=== PATIENT | male | born 1930 | race Caucasian/White ===

== ENCOUNTER 2017-09-28 23:35 | Observation (INO) | payer MEDICARE, BC ==
[2017-09-28] MEDS ORDERED: NS 0.9% 1000 ML* 1,000 ML IV ONE (23:57)
[2017-09-29] MEDS ORDERED: Acetaminophen TAB* 325 MG PO ONE (00:12)
[2017-09-29 00:33] LABS: Hematocrit 46 % (42-52); Hemoglobin 15.7 g/dl (14.0-18.0); Mean Corpuscular HGB Conc 34 g/dl (31-36); Mean Corpuscular Hemoglobin 34 pg (27-31); Mean Corpuscular Volume 98 fL (80-94); Mean Platelet Volume 9 um3 (7.4-10.4); Red Blood Count 4.66 10^6/ul (4.0-5.4); Red Cell Distribution Width 14 % (10.5-15)
[2017-09-29 00:51] LABS: BUN/Creatinine Ratio 19.8 (8-20); EGFR Non-African American 74.4 (>60); Potassium 3.5 mmol/L (3.5-5.0)
[2017-09-29 00:52] LABS: Albumin 3.8 g/dL (3.2-5.2); Calcium 8.9 mg/dL (8.6-10.3); EGFR African American 95.7 (>60); Globulin 2.7 g/dL (2-4); Total Bilirubin 0.6 mg/dL (0.2-1.0); Total Protein 6.5 g/dL (6.4-8.9); Troponin I 0.01 ng/mL (<0.04)
[2017-09-29 02:18] LABS: Urine Bilirubin Negative (Negative); Urine Glucose Negative (Negative); Urine Nitrite Negative (Negative)
--- NOTE | 2017-09-29 03:38 | ED ---
Hudson Parra Jason, scribed for Ady Calderon on 09/28/17 at 2359 . Complex/Multi-Sys Presentation - HPI Summary HPI Summary: This patient is a 86 year old M presenting to [facility] accompanied by family with a chief complaint of general weakness since 2 days ago. The patient states that he had a sore throat 4 days ago and began to have difficulty walking 2 days ago. The patient rates the pain 0/10 in severity. Symptoms aggravated by nothing. Symptoms alleviated by nothing. Patient reports coughing. Patient denies CP, SOB, abdominal pain. - History Of Current Complaint Time Seen by Provider: 09/28/17 23:50 Hx Obtained From: Patient Onset/Duration: Gradual Onset, Lasting Days - since 2 days ago, Still Present Timing: Constant Aggravating Factor(s): nothing Alleviating Factor(s): nothing Associated Signs And Symptoms: Positive: Other - coughing, sore throat, weakness. Patient denies CP, SOB, and abdominal pain. - Allergies/Home Medications Allergies/Adverse Reactions: Allergies Allergy/AdvReac Type Severity Reaction Status Date / Time Penicillins Allergy Intermediate Hives Verified 06/01/13 12:01 Home Medications: Home Medications Cyanocobalamin TAB* [Vitamin B12 TAB*] 2,500 mcg PO 1200 09/29/17 [History Confirmed 09/29/17] Gabapentin CAP(*) [Neurontin 100 mg CAP(*)] 100 mg PO QID 09/29/17 [History Confirmed 09/29/17] Metoprolol Succinate [Metoprolol Succinate ER] 25 mg PO 1700 09/29/17 [History Confirmed 09/29/17] Nitroglycerin TAB 0.4 MG* 0.4 mg SL . NEEDED PRN 09/29/17 [History Confirmed 09/29/17] PMH/Surg Hx/FS Hx/Imm Hx Previously Healthy: No Endocrine/Hematology History: Denies: Hx Anticoagulant Therapy, Hx Blood Disorders, Hx Blood Transfusions, Hx Bone Marrow Disease, Hx Diabetes, Hx Systemic Lupus Erythematosus, Hx Sickle Cell Disease, Hx Thyroid Disease, Hx Anemia, Hx Unexplained Bleeding, Other Endocrine/Hematological Disorders Cardiovascular History: Reports: Hx Coronary Artery Disease, Hx Hypercholesterolemia Denies: Hx Aneurysm, Hx Angina, Hx Angioplasty, Hx Auto Implanted Cardiovert Defib, Hx Cardiac Arrest, Hx Cardiomegaly, Hx Congenital Heart Disease, Hx Congestive Heart Failure, Hx Deep Vein Thrombosis, Hx Embolism, Hx Hypotension, Hx Hypertension, Hx Pacemaker/ICD, Hx Peripheral Vascular Disease, Hx Rheumatic Fever, Hx Syncope, Hx Valvular Heart Disease, Other Cardiovascular Problems/ Disorders Respiratory History: Denies: Hx Asthma, Hx Chronic Bronchitis, Hx Chronic Obstructive Pulmonary Disease (COPD), Hx Cystic Fibrosis, Hx Lung Cancer, Hx Pleural Effusion, Hx Pneumonia, Hx Pulmonary Edema, Hx Pulmonary Embolism, Hx Seasonal Allergies, Hx Sleep Apnea, Other Respiratory Problems/Disorders GI History: Reports: Hx Gastroesophageal Reflux Disease, Hx Hiatal Hernia, Hx Ulcer Denies: Hx Cirrhosis, Hx Crohn's Disease, Hx Diverticulosis, Hx Gall Bladder Disease, Hx Gastrointestinal Bleed, Hx Irritable Bowel, Hx Jaundice, Hx Obstructive Bowel, Hx Ileostomy, Hx Pyloric Stenosis, Other GI Disorders History: Denies: Hx Acute Renal Failure, Hx Benign Prostatic Hyperplasia, Hx Chronic Renal Failure, Hx Dialysis, Hx Kidney Infection, Hx Kidney Stones, Other Problems/Disorders Musculoskeletal History: Reports: Hx Arthritis Denies: Hx Back Problems, Hx Bursitis, Hx Congenital Bone Abnormalities, Hx Fibromyalgia, Hx Gout, Hx Orthopedic Injury, Hx Osteoporosis, Hx Scoliosis, Hx Tendonitis, Other Musculoskeletal History Sensory History: Reports: Hx Contacts or Glasses Denies: Hx Cataracts, Hx Eye Injury, Hx Eye Prosthesis, Hx Glaucoma, Hx Legally Blind, Hx Macular Degeneration, Hx Vision Problem, Hx Deafness, Hx Hearing Aid, Hx Hearing Problem, Other Sensory Impairments Opthamlomology History: Reports: Hx Contacts or Glasses Denies: Hx Cataracts, Hx Eye Injury, Hx Eye Prosthesis, Hx Glaucoma, Hx Legally Blind, Hx Macular Degeneration, Hx Vision Problem, Other Sensory Impairments Neurological History: Denies: Hx Dementia, Hx Developmental Delay, Hx Headaches, Hx Migraine, Hx Nerve Disease, Hx Seizures, Hx Spinal Cord Injury, Hx Transient Ischemic Attacks (TIA), Other Neuro Impairments/Disorders Psychiatric History: Reports: Hx Depression - medicated for depression Denies: Hx Anxiety, Hx Attention Deficit Hyperactivity Disorder, Hx Eating Disorder, Hx Panic Disorder, Hx Post Traumatic Stress Disorder, Hx Inpatient Treatment, Hx Community Mental Health Tx, Hx Schizophrenia, Hx Bipolar Disorder , Hx Suicide Attempt, Hx of Violent Episodes Against Others, Hx Substance Abuse , Other Psychiatric Issues/Disorders - Cancer History Cancer Type, 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 Hx Chemotherapy: No Hx Radiation Therapy: Yes - in the 1960s Hx Palliative Cancer Treatment: No - Surgical History Surgery Procedure, Year, and Place: total right knee 1995, 7 hand surgeries r/t RA, appendectomy, hernia 2012 Hx Anesthesia Reactions: No Infectious Disease History: Denies: Hx Clostridium Difficile, Hx Hepatitis, Hx Human Immunodeficiency Virus (HIV), Hx of Known/Suspected MRSA, Hx Shingles, Hx Tuberculosis, Hx Known/ Suspected VRE, Hx Known/Suspected VRSA, History Other Infectious Disease, Traveled Outside the [place] in Last 30 Days - Family History Known Family History: Negative: Renal Disease, Blood Disorder - Social History Alcohol Use: None Substance Use Type: Reports: None Smoking Status (MU): Never Smoked Tobacco Have You Smoked in the Last Year: No Review of Systems Negative: Chest Pain Negative: Shortness Of Breath Negative: Abdominal Pain Positive: Weakness All Other Systems Reviewed And Are Negative: Yes Physical Exam - Summary Physical Exam Summary: Appearance: Well appearing, no pain distress Skin: warm, dry, reflects adequate perfusion Head/face: normal Eyes: EOMI, RORY ENT: normal, Dry mucous membranes Neck: supple, non-tender Respiratory: breath sounds present, Rhonchi in the left lung base Cardiovascular: RRR, pulses symmetrical Abdomen: non-tender, soft Bowel: present Musculoskeletal: normal, strength/ROM intact Neuro: normal, sensory motor intact, A&Ox3 Triage Information Reviewed: Yes Vital Signs On Initial Exam: Initial Vitals Temp Pulse Resp BP Pulse Ox 101.5 F 87 20 153/74 93 09/28/17 23:50 09/28/17 23:50 09/28/17 23:50 09/28/17 23:50 09/28/17 23:50 Vital Signs Reviewed: Yes Diagnostics - Vital Signs Vital Signs Temp Pulse Resp BP Pulse Ox 09/29/17 03:00 74 12 119/72 92 09/29/17 02:30 67 20 120/64 91 09/29/17 02:00 70 19 115/61 91 09/29/17 01:30 79 19 111/67 92 09/29/17 01:00 84 22 93 09/29/17 00:39 87 19 92 09/29/17 00:38 111/72 09/29/17 00:01 20 09/28/17 23:50 101.5 F 87 20 153/74 93 - Laboratory Lab Results: Lab Results 09/28/17 09/28/1709/28/17 Range/Units 00:20 00:20 00:20 WBC 9.0 (3.5-10.8) 10^3/ul RBC 4.66 (4.0-5.4) 10^6/ul Hgb 15.7 (14.0-18.0) g/dl Hct 46 (42-52) % MCV 98 H (80-94) fL MCH 34 H (27-31) pg MCHC 34 (31-36) g/dl RDW 14 (10.5-15) % Plt Count 125 L (150-450) 10^3/ul MPV 9 (7.4-10.4) um3 Neut % (Auto) 71.4 (38-83) % Lymph % (Auto) 15.1 L (25-47) % [place] % (Auto) 13.2 H (1-9) % Eos % (Auto) 0 (0-6) % Baso % (Auto) 0.3 (0-2) % Absolute Neuts (auto) 6.4 (1.5-7.7) 10^3/ul Absolute Lymphs (auto) 1.4 (1.0-4.8) 10^3/ul Absolute Monos (auto) 1.2 H (0-0.8) 10^3/ul Absolute Eos (auto) 0 (0-0.6) 10^3/ul Absolute Basos (auto) 0 (0-0.2) 10^3/ul Absolute Nucleated RBC 0 10^3/ul Nucleated RBC % 0.1 INR (Anticoag Therapy) 1.09 H (0.77-1.02) APTT 33.5 (26.0-36.3) seconds Sodium (133-145) mmol/L Potassium (3.5-5.0) mmol/L Chloride (101-111) mmol/L Carbon Dioxide (22-32) mmol/L Anion Gap (2-11) mmol/L BUN (6-24) mg/dL Creatinine (0.67-1.17) mg/dL Est GFR ( Amer) (>60) Est GFR (Non-Af Amer) (>60) BUN/Creatinine Ratio (8-20) Glucose (70-100) mg/dL Lactic Acid (0.5-2.0) mmol/L Calcium (8.6-10.3) mg/dL Total Bilirubin (0.2-1.0) mg/dL AST (13-39) U/L ALT (7-52) U/L Alkaline Phosphatase (34-104) U/L Troponin I (<0.04) ng/mL B-Natriuretic Peptide 15 ( - 100) pg/mL Total Protein (6.4-8.9) g/dL Albumin (3.2-5.2) g/dL Globulin (2-4) g/dL Albumin/Globulin Ratio (1-3) Procalcitonin (<0.6) ng/mL Urine Color Urine Appearance Urine pH (5-9) Ur Specific [place] (1.010-1.030) Urine Protein (Negative) Urine Ketones (Negative) Urine Blood (Negative) Urine Nitrate (Negative) Urine Bilirubin (Negative) Urine Urobilinogen (Negative) Ur Leukocyte Esterase (Negative) Urine Glucose (Negative) Urine Ascorbic Acid (Negative) Influenza A (Rapid) (Negative) Influenza B (Rapid) (Negative) 09/28/17 09/28/17 09/28/17 Range/Units 00:20 00:20 00:20 WBC (3.5-10.8) 10^3/ul RBC (4.0-5.4) 10^6/ul Hgb (14.0-18.0) g/dl Hct (42-52) % MCV (80-94) fL MCH (27-31) pg MCHC (31-36) g/dl RDW (10.5-15) % Plt Count (150-450) 10^3/ul MPV (7.4-10.4) um3 Neut % (Auto) (38-83) % Lymph % (Auto) (25-47) % [place] % (Auto) (1-9) % Eos % (Auto) (0-6) % Baso % (Auto) (0-2) % Absolute Neuts (auto) (1.5-7.7) 10^3/ul Absolute Lymphs (auto) (1.0-4.8) 10^3/ul Absolute Monos (auto) (0-0.8) 10^3/ul Absolute Eos (auto) (0-0.6) 10^3/ul Absolute Basos (auto) (0-0.2) 10^3/ul Absolute Nucleated RBC 10^3/ul Nucleated RBC % INR (Anticoag Therapy) (0.77-1.02) APTT (26.0-36.3) seconds Sodium 135 (133-145) mmol/L Potassium 3.5 (3.5-5.0) mmol/L Chloride 105 (101-111) mmol/L Carbon Dioxide 23 (22-32) mmol/L Anion Gap 7 (2-11) mmol/L BUN 19 (6-24) mg/dL Creatinine 0.96 (0.67-1.17) mg/dL Est GFR ( Amer) 95.7 (>60) Est GFR (Non-Af Amer) 74.4 (>60) BUN/Creatinine Ratio 19.8 (8-20) Glucose 141 H (70-100) mg/dL Lactic Acid 0.9 (0.5-2.0) mmol/L Calcium 8.9 (8.6-10.3) mg/dL Total Bilirubin 0.60 (0.2-1.0) mg/dL AST 22 (13-39) U/L ALT 16 (7-52) U/L Alkaline Phosphatase 47 (34-104) U/L Troponin I 0.01 (<0.04) ng/mL B-Natriuretic Peptide ( - 100) pg/mL Total Protein 6.5 (6.4-8.9) g/dL Albumin 3.8 (3.2-5.2) g/dL Globulin 2.7 (2-4) g/dL Albumin/Globulin Ratio 1.4 (1-3) Procalcitonin 0.1 (<0.6) ng/mL Urine Color Urine Appearance Urine pH (5-9) Ur Specific [place] (1.010-1.030) Urine Protein (Negative) Urine Ketones (Negative) Urine Blood (Negative) Urine Nitrate (Negative) Urine Bilirubin (Negative) Urine Urobilinogen (Negative) Ur Leukocyte Esterase (Negative) Urine Glucose (Negative) Urine Ascorbic Acid (Negative) Influenza A (Rapid) (Negative) Influenza B (Rapid) (Negative) 09/29/17 09/29/17 Range/Units 01:04 01:45 WBC (3.5-10.8) 10^3/ul RBC (4.0-5.4) 10^6/ul Hgb (14.0-18.0) g/dl Hct (42-52) % MCV (80-94) fL MCH (27-31) pg MCHC (31-36) g/dl RDW (10.5-15) % Plt Count (150-450) 10^3/ul MPV (7.4-10.4) um3 Neut % (Auto) (38-83) % Lymph % (Auto) (25-47) % [place] % (Auto) (1-9) % Eos % (Auto) (0-6) % Baso % (Auto) (0-2) % Absolute Neuts (auto) (1.5-7.7) 10^3/ul Absolute Lymphs (auto) (1.0-4.8) 10^3/ul Absolute Monos (auto) (0-0.8) 10^3/ul Absolute Eos (auto) (0-0.6) 10^3/ul Absolute Basos (auto) (0-0.2) 10^3/ul Absolute Nucleated RBC 10^3/ul Nucleated RBC % INR (Anticoag Therapy) (0.77-1.02) APTT (26.0-36.3) seconds Sodium (133-145) mmol/L Potassium (3.5-5.0) mmol/L Chloride (101-111) mmol/L Carbon Dioxide (22-32) mmol/L Anion Gap (2-11) mmol/L BUN (6-24) mg/dL Creatinine (0.67-1.17) mg/dL Est GFR ( Amer) (>60) Est GFR (Non-Af Amer) (>60) BUN/Creatinine Ratio (8-20) Glucose (70-100) mg/dL Lactic Acid (0.5-2.0) mmol/L Calcium (8.6-10.3) mg/dL Total Bilirubin (0.2-1.0) mg/dL AST (13-39) U/L ALT (7-52) U/L Alkaline Phosphatase (34-104) U/L Troponin I (<0.04) ng/mL B-Natriuretic Peptide ( - 100) pg/mL Total Protein (6.4-8.9) g/dL Albumin (3.2-5.2) g/dL Globulin (2-4) g/dL Albumin/Globulin Ratio (1-3) Procalcitonin (<0.6) ng/mL Urine Color Radha Urine Appearance Clear Urine pH 5.0 (5-9) Ur Specific [place] 1.023 (1.010-1.030) Urine Protein Negative (Negative) Urine Ketones Negative (Negative) Urine Blood Negative (Negative) Urine Nitrate Negative (Negative) Urine Bilirubin Negative (Negative) Urine Urobilinogen Negative (Negative) Ur Leukocyte Esterase Negative (Negative) Urine Glucose Negative (Negative) Urine Ascorbic Acid * H (Negative) Influenza A (Rapid) Negative (Negative) Influenza B (Rapid) Negative (Negative) Result Diagrams: 09/28/17 00:20 09/28/17 00:20 Lab Statement: Any lab studies that have been ordered have been reviewed, and results considered in the medical decision making process. - Radiology CXR Radiology Interpretation Completed By: ED Physician - NO FINDINGS - EKG 0012 Cardiac Rate: NL EKG Rhythm: Sinus Rhythm - 81 bpm EKG Interpretation: Right Bundle Branch Block Complex Multi-Symp Course/Dx Course Of Treatment: This patient is a 86 year old M presenting to [facility] accompanied by family with a chief complaint of general weakness since 2 days ago. CXR reveals no findings. EKG reveals Sinus rhythm at 81 bpm and RBBB. Influenza A and B test result is negative. Bloodwork/UA obtained. We discussed patient care with Dr. Martinez and they recommended admission. The patient is agreeable with this plan. Dx of Fever, dizziness, weakness, and unable to ambulate. - Diagnoses Differential Diagnoses/HQI/PQRI: Sepsis, Urinary Tract Infection, Other - flu/ pneumonia Provider Diagnoses: Dizziness, Weakness, Fever, Unable to ambulate - Physician Notifications Discussed Care Of Patient With: Essie Martinez Time Discussed With Above Provider: 02:39 Instructed by Provider To: Admit As Inpatient Discharge - Discharge Plan Condition: Stable Disposition: ADMITTED TO [facility] Referrals: Rain Pinon MD [Primary Care Provider] - The documentation as recorded by the Hudson iverson Jason accurately reflects the service I personally performed and the decisions made by Kvng fountain Emmanuel.
[2017-09-29] MEDS ORDERED: Acetaminophen TAB* 325 MG PO PRN (04:13)
[2017-09-29] MEDS ORDERED: Albuterol 2.5 MG/3 ML NEB.SOL* (0.083%) INH PRN (04:13)
[2017-09-29] MEDS ORDERED: NS 0.9% 1000 ML* 1,000 ML IV SCH (04:15)
[2017-09-29] MEDS: Azithromycin IV(*) 500 MG in NS 0.9% 250 ML* 250 ML IVPB SCH (05:15)
[2017-09-29] MEDS: Heparin VIAL(*) 5000 UNITS/ML VIAL (FIVE THOUSAND) SUBCUT SCH ×3 (05:18→21:35)
--- NOTE | 2017-09-29 07:57 | RAD ---
HISTORY: Fever COMPARISONS: August 29, 2015 VIEWS: 1: frontal portable view of the chest at 12:25 AM FINDINGS: LINES AND TUBES: None. CARDIOMEDIASTINAL SILHOUETTE: The cardiomediastinal silhouette is stable. PLEURA: The costophrenic angles are sharp. No pleural abnormalities are noted. LUNG PARENCHYMA: The lungs are clear. ABDOMEN: The upper abdomen is clear. There is no subphrenic gas. BONES AND SOFT TISSUES: No bone or soft tissue abnormalities are noted. IMPRESSION: NO ACTIVE CARDIOPULMONARY DISEASE.
--- NOTE | 2017-09-29 08:13 | HP ---
CC: Dr. Pinon; Dr. Miles from Rheumatology; Dr. Murrell from Cardiology * HISTORY AND PHYSICAL: DATE OF ADMISSION: 09/29/17 PRIMARY CARE PROVIDER: Dr. Pinon. CHIEF COMPLAINT: Cough and fever. HISTORY OF PRESENT ILLNESS: August Celeste is an 86-year-old male with a history of coronary artery disease, who has been having problems with a cold for the past 4 days. The patient stated that he is coughing up phlegm and he has gotten very week. Due to his rheumatoid arthritis, his ambulation, although he ambulates without any support, is somewhat limited. The patient was noted to have a fever of 101 upon presentation to the emergency department. So far his workup otherwise is unremarkable. He is going to be placed on overnight observation with the diagnosis of bronchitis. PAST MEDICAL HISTORY: 1. History of coronary artery disease, status post stents, and the recent stent was placed in 2014. 2. Gastroesophageal reflux disease. 3. History of paroxysmal atrial fibrillation not on anticoagulation. 4. Dyslipidemia. 5. History of right bundle-branch block. 6. History of right humeral fracture, status post right hip replacement. 7. Appendectomy. 8. Peripheral neuropathy. 9. Rheumatoid arthritis under the care of Dr. Miles. 10. History of bradycardia. MEDICATIONS: Medications at home include: 1. Nitroglycerin on p.r.n. basis. 2. Metoprolol succinate 25 mg daily. 3. Vitamin B12 2500 mcg daily. 4. Simvastatin 40 mg daily. 5. Sulfasalazine 500 mg b.i.d. 6. Omeprazole 40 mg daily. 7. Gabapentin 100 mg 4 times a day. 8. Effexor XR 75 mg daily. 9. Aspirin 81 mg daily. ALLERGIES: Include PENICILLIN. FAMILY HISTORY: Positive for father dying in his 80s of heart disease. Mother also in her 70s due to heart disease. SOCIAL HISTORY: The patient denies any tobacco, alcohol, or drug use. He lives with his who is her healthcare proxy. REVIEW OF SYSTEMS: Please see history of present illness, the remaining 12 systems were reviewed with the patient and were otherwise negative. PHYSICAL EXAMINATION GENERAL: The patient is a very pleasant 86-year-old male, who is in no acute distress. Alert, awake and oriented x3. VITAL SIGNS: Blood pressure of 182/59, heart rate of 70 and regular, respiratory rate 18, oxygen saturation 93% on room air, temperature on presentation was 101.5 currently is 98.1. HEENT: Head: Atraumatic, normocephalic. Eyes: Pupils are equal, reactive to light and accommodation. Oropharynx clear. Mucosa dry. NECK: Supple. No JVD, no bruits bilaterally. RESPIRATORY: Rhonchi at bilateral mid lower lobes. CARDIOVASCULAR: Regular rate and rhythm. No murmur. ABDOMEN: Soft and nontender. Bowel sounds are present in all 4 quadrants. EXTREMITIES: There is no edema. Pulses are 2+ bilaterally. No clubbing or cyanosis. NEURO EVALUATION: Cranial nerves II through XII are grossly intact. Motor strength is 5/5 bilaterally. PSYCHIATRIC EVALUATION: Very pleasant cooperative with evaluation and oriented x3 with no evidence of anxiety or depression. SKIN: On evaluation of the skin, no ecchymotic areas or rashes noted. DIAGNOSTIC STUDIES/LAB DATA: Show white blood cell count of 9.3, hemoglobin of 15.7, hematocrit of 46, MCV of 98, and platelets of 125, which is consistent with prior. Sodium of 135, potassium 3.5, chloride 105, carbon dioxide 23, BUN 19, creatinine 0.96. Liver function tests were unremarkable. Lactic acid of 0.9, procalcitonin of 0.1. Urinalysis grossly unremarkable. Rapid flu test was negative. Portable chest x-ray reviewed by myself showed no pneumonia. The official radiologist report is still pending at the time of dictation. ASSESSMENT AND PLAN: An 86-year-old male with a history of rheumatoid arthritis who presented with bronchitis, fever, and mild dehydration. The patient is going to be placed on overnight observation. He is going to be treated with azithromycin, although it is most likely a viral infection at this point. He is also going to be treated with intravenous fluids for his dehydration. 1. For his rheumatoid arthritis, his sulfasalazine is going to be continued. 2. For history of neuropathy, the gabapentin is going to be continued. 3. For hypertension, metoprolol is going to be continued. 4. For history of heart disease, the patient is going to be continued on his aspirin and beta-luis daniel. 5. For DVT prophylaxis, the patient is going to be placed on heparin subcutaneously. 6. The patient's code status is full. His surrogate is his . TIME SPENT: Approximately 71 minutes was spent on the admission of this patient , more than half that time was spent [id number] with the patient doing the interview and physical exam. [id number]/[facility] #: [id number] MONTRELL
[2017-09-29] MEDS: sulfaSALAzine TAB* 500 MG PO SCH ×2 (09:15→17:44)
[2017-09-29] MEDS: Venlafaxine EXT RELEASE CAP* 75 MG PO SCH (09:15)
[2017-09-29] MEDS: Gabapentin CAP(*) 100 MG PO SCH ×4 (09:16→21:35)
[2017-09-29] MEDS: Aspirin EC Low Dose* 81 MG TAB.EC PO SCH (09:16)
[2017-09-29] MEDS: Omeprazole CAP* 20 MG PO SCH (09:16)
--- NOTE | 2017-09-29 13:12 | DCNOTE ---
Subjective Date of Service: 09/29/17 Interval History: Patient seen and examined. States he is feeling much better. Still with cough, some sputum, afebrile, no chills, no chest pain, no SOB. Denies headache or dizziness. Objective Active Medications: Acetaminophen (Tylenol Tab*) 650 mg PO Q4H PRN PRN Reason: FEVER/PAIN Albuterol (Ventolin 2.5 Mg/3 Ml Neb.Evelin*) 2.5 mg INH [id number] AWAKE PRN PRN Reason: sob/wheezing Aspirin (Aspirin Ec Low Dose*) 81 mg PO DAILY [facility] Last Admin: 09/29/17 09:16 Dose: 81 mg Atorvastatin Calcium (Lipitor*) 20 mg PO BEDTIME [facility] Cyanocobalamin (Vitamin B12 Tab*) 2,500 mcg PO 1200 [facility] Gabapentin (Neurontin Cap(*)) 100 mg PO QID [facility] Last Admin: 09/29/17 09:16 Dose: 100 mg Heparin Sodium (Porcine) (Heparin Vial(*)) 5,000 units SUBCUT Q8HR [facility] Last Admin: 09/29/17 05:18 Dose: 5,000 units Azithromycin 500 mg/ Sodium (Chloride) 250 mls @ 250 mls/hr IVPB Q24H [facility] Last Admin: 09/29/17 05:15 Dose: 250 mls/hr Sodium Chloride (Ns 0.9% 1000 Ml*) 1,000 mls @ 100 mls/hr IV PER RATE [facility] Stop: 09/29/17 14:14 Last Admin: 09/29/17 09:17 Dose: 100 mls/hr Metoprolol Succinate (Toprol Xl Tab*) 25 mg PO 1700 [facility] Omeprazole (Prilosec Cap*) 40 mg PO DAILY@0730 [facility] Last Admin: 09/29/17 09:16 Dose: 40 mg Sulfasalazine (Azulfidine Tab*) 500 mg PO BID PC [facility] Last Admin: 09/29/17 09:15 Dose: 500 mg Venlafaxine HCl (Effexor Xr Cap*) 75 mg PO DAILY WITH MEAL [facility] Last Admin: 09/29/17 09:15 Dose: 75 mg Vital Signs - 8 hr 09/29/17 09/29/17 09/29/17 05:09 08:00 09:16 Temperature 98.4 F Pulse Rate 71 Respiratory 16 18 18 Rate Blood Pressure 126/71 (mmHg) O2 Sat by Pulse 96 Oximetry 09/29/17 10:53 Temperature 97.4 F Pulse Rate 60 Respiratory 14 Rate Blood Pressure 134/65 (mmHg) O2 Sat by Pulse 96 Oximetry Oxygen Devices in Use Now: None Appearance: Well appearing, NAD Eyes: No Scleral Icterus, PERRLA Ears/Nose/Mouth/Throat: NL Teeth, Lips, Gums, Mucous Membranes Moist Neck: NL Appearance and Movements; NL JVP Respiratory: Symmetrical Chest Expansion and Respiratory Effort, Clear to Auscultation Cardiovascular: NL Sounds; No Murmurs; No JVD, RRR Abdominal: NL Sounds; No Tenderness; No Distention Extremities: No Edema, No Clubbing, Cyanosis Skin: No Rash or Ulcers Neurological: Alert and Oriented x 3, NL Sensation, NL Muscle Strength and Tone Nutrition: Taking PO's Result Diagrams: 09/28/17 00:20 09/28/17 00:20 Additional Lab and Data: Lab Results 09/28/17 09/28/17 09/28/17 Range/Units 00:20 00:20 00:20 WBC 9.0 (3.5-10.8) 10^3/ul RBC 4.66 (4.0-5.4) 10^6/ul Hgb 15.7 (14.0-18.0) g/dl Hct 46 (42-52) % MCV 98 H (80-94) fL MCH 34 H (27-31) pg MCHC 34 (31-36) g/dl RDW 14 (10.5-15) % Plt Count 125 L (150-450) 10^3/ul MPV 9 (7.4-10.4) um3 Neut % (Auto) 71.4 (38-83) % Lymph % (Auto) 15.1 L (25-47) % [place] % (Auto) 13.2 H (1-9) % Eos % (Auto) 0 (0-6) % Baso % (Auto) 0.3 (0-2) % Absolute Neuts (auto) 6.4 (1.5-7.7) 10^3/ul Absolute Lymphs (auto) 1.4 (1.0-4.8) 10^3/ul Absolute Monos (auto) 1.2 H (0-0.8) 10^3/ul Absolute Eos (auto) 0 (0-0.6) 10^3/ul Absolute Basos (auto) 0 (0-0.2) 10^3/ul Absolute Nucleated RBC 0 10^3/ul Nucleated RBC % 0.1 INR (Anticoag Therapy) 1.09 H (0.77-1.02) APTT 33.5 (26.0-36.3) seconds Sodium (133-145) mmol/L Potassium (3.5-5.0) mmol/L Chloride (101-111) mmol/L Carbon Dioxide (22-32) mmol/L Anion Gap (2-11) mmol/L BUN (6-24) mg/dL Creatinine (0.67-1.17) mg/dL Est GFR ( Amer) (>60) Est GFR (Non-Af Amer) (>60) BUN/Creatinine Ratio (8-20) Glucose (70-100) mg/dL Lactic Acid (0.5-2.0) mmol/L Calcium (8.6-10.3) mg/dL Total Bilirubin (0.2-1.0) mg/dL AST (13-39) U/L ALT (7-52) U/L Alkaline Phosphatase (34-104) U/L Troponin I (<0.04) ng/mL B-Natriuretic Peptide 15 ( - 100) pg/mL Total Protein (6.4-8.9) g/dL Albumin (3.2-5.2) g/dL Globulin (2-4) g/dL Albumin/Globulin Ratio (1-3) Procalcitonin (<0.6) ng/mL Urine Color Urine Appearance Urine pH (5-9) Ur Specific [place] (1.010-1.030) Urine Protein (Negative) Urine Ketones (Negative) Urine Blood (Negative) Urine Nitrate (Negative) Urine Bilirubin (Negative) Urine Urobilinogen (Negative) Ur Leukocyte Esterase (Negative) Urine Glucose (Negative) Urine Ascorbic Acid (Negative) Influenza A (Rapid) (Negative) Influenza B (Rapid) (Negative) 09/28/17 09/28/17 09/28/17 Range/Units 00:20 00:20 00:20 WBC (3.5-10.8) 10^3/ul RBC (4.0-5.4) 10^6/ul Hgb (14.0-18.0) g/dl Hct (42-52) % MCV (80-94) fL MCH (27-31) pg MCHC (31-36) g/dl RDW (10.5-15) % Plt Count (150-450) 10^3/ul MPV (7.4-10.4) um3 Neut % (Auto) (38-83) % Lymph % (Auto) (25-47) % [place] % (Auto) (1-9) % Eos % (Auto) (0-6) % Baso % (Auto) (0-2) % Absolute Neuts (auto) (1.5-7.7) 10^3/ul Absolute Lymphs (auto) (1.0-4.8) 10^3/ul Absolute Monos (auto) (0-0.8) 10^3/ul Absolute Eos (auto) (0-0.6) 10^3/ul Absolute Basos (auto) (0-0.2) 10^3/ul Absolute Nucleated RBC 10^3/ul Nucleated RBC % INR (Anticoag Therapy) (0.77-1.02) APTT (26.0-36.3) seconds Sodium 135 (133-145) mmol/L Potassium 3.5 (3.5-5.0) mmol/L Chloride 105 (101-111) mmol/L Carbon Dioxide 23 (22-32) mmol/L Anion Gap 7 (2-11) mmol/L BUN 19 (6-24) mg/dL Creatinine 0.96 (0.67-1.17) mg/dL Est GFR ( Amer) 95.7 (>60) Est GFR (Non-Af Amer) 74.4 (>60) BUN/Creatinine Ratio 19.8 (8-20) Glucose 141 H (70-100) mg/dL Lactic Acid 0.9 (0.5-2.0) mmol/L Calcium 8.9 (8.6-10.3) mg/dL Total Bilirubin 0.60 (0.2-1.0) mg/dL AST 22 (13-39) U/L ALT 16 (7-52) U/L Alkaline Phosphatase 47 (34-104) U/L Troponin I 0.01 (<0.04) ng/mL B-Natriuretic Peptide ( - 100) pg/mL Total Protein 6.5 (6.4-8.9) g/dL Albumin 3.8 (3.2-5.2) g/dL Globulin 2.7 (2-4) g/dL Albumin/Globulin Ratio 1.4 (1-3) Procalcitonin 0.1 (<0.6) ng/mL Urine Color Urine Appearance Urine pH (5-9) Ur Specific [place] (1.010-1.030) Urine Protein (Negative) Urine Ketones (Negative) Urine Blood (Negative) Urine Nitrate (Negative) Urine Bilirubin (Negative) Urine Urobilinogen (Negative) Ur Leukocyte Esterase (Negative) Urine Glucose (Negative) Urine Ascorbic Acid (Negative) Influenza A (Rapid) (Negative) Influenza B (Rapid) (Negative) 09/29/17 09/29/17 Range/Units 01:04 01:45 WBC (3.5-10.8) 10^3/ul RBC (4.0-5.4) 10^6/ul Hgb (14.0-18.0) g/dl Hct (42-52) % MCV (80-94) fL MCH (27-31) pg MCHC (31-36) g/dl RDW (10.5-15) % Plt Count (150-450) 10^3/ul MPV (7.4-10.4) um3 Neut % (Auto) (38-83) % Lymph % (Auto) (25-47) % [place] % (Auto) (1-9) % Eos % (Auto) (0-6) % Baso % (Auto) (0-2) % Absolute Neuts (auto) (1.5-7.7) 10^3/ul Absolute Lymphs (auto) (1.0-4.8) 10^3/ul Absolute Monos (auto) (0-0.8) 10^3/ul Absolute Eos (auto) (0-0.6) 10^3/ul Absolute Basos (auto) (0-0.2) 10^3/ul Absolute Nucleated RBC 10^3/ul Nucleated RBC % INR (Anticoag Therapy) (0.77-1.02) APTT (26.0-36.3) seconds Sodium (133-145) mmol/L Potassium (3.5-5.0) mmol/L Chloride (101-111) mmol/L Carbon Dioxide (22-32) mmol/L Anion Gap (2-11) mmol/L BUN (6-24) mg/dL Creatinine (0.67-1.17) mg/dL Est GFR ( Amer) (>60) Est GFR (Non-Af Amer) (>60) BUN/Creatinine Ratio (8-20) Glucose (70-100) mg/dL Lactic Acid (0.5-2.0) mmol/L Calcium (8.6-10.3) mg/dL Total Bilirubin (0.2-1.0) mg/dL AST (13-39) U/L ALT (7-52) U/L Alkaline Phosphatase (34-104) U/L Troponin I (<0.04) ng/mL B-Natriuretic Peptide ( - 100) pg/mL Total Protein (6.4-8.9) g/dL Albumin (3.2-5.2) g/dL Globulin (2-4) g/dL Albumin/Globulin Ratio (1-3) Procalcitonin (<0.6) ng/mL Urine Color Radha Urine Appearance Clear Urine pH 5.0 (5-9) Ur Specific [place] 1.023 (1.010-1.030) Urine Protein Negative (Negative) Urine Ketones Negative (Negative) Urine Blood Negative (Negative) Urine Nitrate Negative (Negative) Urine Bilirubin Negative (Negative) Urine Urobilinogen Negative (Negative) Ur Leukocyte Esterase Negative (Negative) Urine Glucose Negative (Negative) Urine Ascorbic Acid * H (Negative) Influenza A (Rapid) Negative (Negative) Influenza B (Rapid) Negative (Negative) Assess/Plan/Problems-Billing Assessment: This is an 86 year old male patient admitted to [facility] for acute bronchitis and dehydration. - Patient Problems (1) DVT prophylaxis Current Visit: No Status: Acute Priority: Medium Code(s): WGP7101 - SNOMED Code(s): 192684532 Comment: HSQ (2) Depression Current Visit: No Status: Acute Priority: Medium Code(s): F32.9 - MAJOR DEPRESSIVE DISORDER, SINGLE EPISODE, UNSPECIFIED SNOMED Code(s): 87179883 Comment: Continue Effexor (3) GERD (gastroesophageal reflux disease) Current Visit: No Status: Acute Priority: Medium Code(s): K21.9 - GASTRO- ESOPHAGEAL REFLUX DISEASE WITHOUT ESOPHAGITIS SNOMED Code(s): 192987865 Comment: Continue PPI and carafate (4) Rheumatoid arthritis Current Visit: No Status: Acute Priority: Medium Code(s): M06.9 - RHEUMATOID ARTHRITIS, UNSPECIFIED SNOMED Code(s): 90465881 Comment: Continue sulfaslazine (5) Bronchitis Code(s): J40 - BRONCHITIS, NOT SPECIFIED ACUTE OR CHRONIC SNOMED Code(s): 60395561 Comment: - Acute, no consolidation appreciated - Currently afebrile - Receiving zithromax IV, will transition to PO - CXR negative - Will give mucinex now for congestion (6) Dehydration fever Code(s): R50.9 - FEVER, UNSPECIFIED SNOMED Code(s): 48739270 Comment: - Better after IVF - Remains afebrile - Will DC fluids now - tylenol PRN (7) CAD (coronary artery disease) Code(s): I25.10 - ATHSCL HEART DISEASE OF [place] CORONARY ARTERY W/O ANG PCTRS SNOMED Code(s): 94821976 Comment: - Hx of stents and cardiomyopathy - Stable CV status at present Status and Disposition: If able to ambulate and weakness has resolved, will DC home later this afternoon /evening on PO azithromycin and can f/u with his PCP this week. Counseling and/or Coordination of Care Minutes: Coordinated with patient and primary RN. Time spent >45mins
[2017-09-29] MEDS: Cyanocobalamin TAB* 500 MCG PO SCH (13:13)
[2017-09-29] MEDS ORDERED: guaiFENesin ER TAB 600 MG PO ONE (13:14)
[2017-09-29] MEDS ORDERED: Metoprolol Succinate XL TAB* 25 MG PO SCH (17:00)
[2017-09-29] MEDS ORDERED: Atorvastatin* 20 MG TAB PO SCH (21:00)
[2017-09-30] MEDS: Azithromycin IV(*) 500 MG in NS 0.9% 250 ML* 250 ML IVPB SCH (04:57)
[2017-09-30 07:04] LABS: Hematocrit 40 % (42-52); Hemoglobin 13.6 g/dl (14.0-18.0); Mean Corpuscular HGB Conc 34 g/dl (31-36); Mean Corpuscular Hemoglobin 34 pg (27-31); Mean Corpuscular Volume 99 fL (80-94); Mean Platelet Volume 9 um3 (7.4-10.4); Red Blood Count 4.08 10^6/ul (4.0-5.4); Red Cell Distribution Width 14 % (10.5-15); White Blood Count 6.1 10^3/ul (3.5-10.8)
[2017-09-30 07:20] LABS: BUN/Creatinine Ratio 20.5 (8-20); Calcium 8.5 mg/dL (8.6-10.3); EGFR African American 105.8 (>60); EGFR Non-African American 82.3 (>60); Potassium 3.5 mmol/L (3.5-5.0)
[2017-09-30] MEDS: Omeprazole CAP* 20 MG PO SCH (07:36)
[2017-09-30] MEDS: sulfaSALAzine TAB* 500 MG PO SCH (07:36)
[2017-09-30] MEDS: Aspirin EC Low Dose* 81 MG TAB.EC PO SCH (07:36)
[2017-09-30] MEDS: Venlafaxine EXT RELEASE CAP* 75 MG PO SCH (07:36)
[2017-09-30] MEDS: Gabapentin CAP(*) 100 MG PO SCH ×2 (07:36→12:12)
[2017-09-30] MEDS: Heparin VIAL(*) 5000 UNITS/ML VIAL (FIVE THOUSAND) SUBCUT SCH ×2 (07:48→15:41)
--- NOTE | 2017-09-30 10:47 | DCNOTE ---
Subjective Date of Service: 09/30/17 Interval History: Patient seen and examined. No acute overnight events. Had trouble ambulating last night. Still had some weakness and trouble with conventional walker. Needed frequent breaks 2/2 weakness and intermittent SOB. States improved today. Denies chest pain. No fevers or chills, still with cough, non- productive. Denies headache or dizziness. Tolerating PO. Objective Active Medications: Acetaminophen (Tylenol Tab*) 650 mg PO Q4H PRN PRN Reason: FEVER/PAIN Albuterol (Ventolin 2.5 Mg/3 Ml Neb.Evelin*) 2.5 mg INH [id number] AWAKE PRN PRN Reason: sob/wheezing Aspirin (Aspirin Ec Low Dose*) 81 mg PO DAILY [facility] Last Admin: 09/30/17 07:36 Dose: 81 mg Atorvastatin Calcium (Lipitor*) 20 mg PO BEDTIME [facility] Last Admin: 09/29/17 21:35 Dose: 20 mg Cyanocobalamin (Vitamin B12 Tab*) 2,500 mcg PO 1200 [facility] Last Admin: 09/29/17 13:13 Dose: 2,500 mcg Gabapentin (Neurontin Cap(*)) 100 mg PO QID [facility] Last Admin: 09/30/17 07:36 Dose: 100 mg Heparin Sodium (Porcine) (Heparin Vial(*)) 5,000 units SUBCUT Q8HR [facility] Last Admin: 09/30/17 07:48 Dose: 5,000 units Azithromycin 500 mg/ Sodium (Chloride) 250 mls @ 250 mls/hr IVPB Q24H [facility] Last Admin: 09/30/17 04:57 Dose: 250 mls/hr Metoprolol Succinate (Toprol Xl Tab*) 25 mg PO 1700 [facility] Last Admin: 09/29/17 17:44 Dose: 25 mg Omeprazole (Prilosec Cap*) 40 mg PO DAILY@0730 [facility] Last Admin: 09/30/17 07:36 Dose: 40 mg Sulfasalazine (Azulfidine Tab*) 500 mg PO BID PC [facility] Last Admin: 09/30/17 07:36 Dose: 500 mg Venlafaxine HCl (Effexor Xr Cap*) 75 mg PO DAILY WITH MEAL [facility] Last Admin: 09/30/17 07:36 Dose: 75 mg Vital Signs - 8 hr 09/30/17 09/30/17 09/30/17 03:13 04:08 04:09 Temperature 98.3 F Pulse Rate 70 Respiratory 17 18 18 Rate Blood Pressure 116/53 (mmHg) O2 Sat by Pulse 93 Oximetry 09/30/17 09/30/17 07:32 07:36 Temperature 98.7 F Pulse Rate 60 Respiratory 16 16 Rate Blood Pressure 137/68 (mmHg) O2 Sat by Pulse 95 Oximetry Oxygen Devices in Use Now: None Appearance: Alert, well appearing, NAD Eyes: No Scleral Icterus, PERRLA Ears/Nose/Mouth/Throat: NL Teeth, Lips, Gums, Mucous Membranes Moist Neck: NL Appearance and Movements; NL JVP Respiratory: Symmetrical Chest Expansion and Respiratory Effort, Clear to Auscultation Cardiovascular: NL Sounds; No Murmurs; No JVD, RRR Abdominal: NL Sounds; No Tenderness; No Distention Extremities: No Edema, No Clubbing, Cyanosis Skin: No Rash or Ulcers Neurological: Alert and Oriented x 3, NL Sensation, NL Muscle Strength and Tone , - - needs assistive device and frequent breaks Nutrition: Taking PO's Result Diagrams: 09/30/17 06:32 09/30/17 06:32 Additional Lab and Data: Lab Results 09/28/17 09/28/17 09/28/17 Range/Units 00:20 00:20 00:20 WBC 9.0 (3.5-10.8) 10^3/ul RBC 4.66 (4.0-5.4) 10^6/ul Hgb 15.7 (14.0-18.0) g/dl Hct 46 (42-52) % MCV 98 H (80-94) fL MCH 34 H (27-31) pg MCHC 34 (31-36) g/dl RDW 14 (10.5-15) % Plt Count 125 L (150-450) 10^3/ul MPV 9 (7.4-10.4) um3 Neut % (Auto) 71.4 (38-83) % Lymph % (Auto) 15.1 L (25-47) % [place] % (Auto) 13.2 H (1-9) % Eos % (Auto) 0 (0-6) % Baso % (Auto) 0.3 (0-2) % Absolute Neuts (auto) 6.4 (1.5-7.7) 10^3/ul Absolute Lymphs (auto) 1.4 (1.0-4.8) 10^3/ul Absolute Monos (auto) 1.2 H (0-0.8) 10^3/ul Absolute Eos (auto) 0 (0-0.6) 10^3/ul Absolute Basos (auto) 0 (0-0.2) 10^3/ul Absolute Nucleated RBC 0 10^3/ul Nucleated RBC % 0.1 INR (Anticoag Therapy) 1.09 H (0.77-1.02) APTT 33.5 (26.0-36.3) seconds Sodium (133-145) mmol/L Potassium (3.5-5.0) mmol/L Chloride (101-111) mmol/L Carbon Dioxide (22-32) mmol/L Anion Gap (2-11) mmol/L BUN (6-24) mg/dL Creatinine (0.67-1.17) mg/dL Est GFR ( Amer) (>60) Est GFR (Non-Af Amer) (>60) BUN/Creatinine Ratio (8-20) Glucose (70-100) mg/dL Lactic Acid (0.5-2.0) mmol/L Calcium (8.6-10.3) mg/dL Total Bilirubin (0.2-1.0) mg/dL AST (13-39) U/L ALT (7-52) U/L Alkaline Phosphatase (34-104) U/L Troponin I (<0.04) ng/mL B-Natriuretic Peptide 15 ( - 100) pg/mL Total Protein (6.4-8.9) g/dL Albumin (3.2-5.2) g/dL Globulin (2-4) g/dL Albumin/Globulin Ratio (1-3) Procalcitonin (<0.6) ng/mL Urine Color Urine Appearance Urine pH (5-9) Ur Specific [place] (1.010-1.030) Urine Protein (Negative) Urine Ketones (Negative) Urine Blood (Negative) Urine Nitrate (Negative) Urine Bilirubin (Negative) Urine Urobilinogen (Negative) Ur Leukocyte Esterase (Negative) Urine Glucose (Negative) Urine Ascorbic Acid (Negative) Influenza A (Rapid) (Negative) Influenza B (Rapid) (Negative) 09/28/17 09/28/17 09/28/17 Range/Units 00:20 00:20 00:20 WBC (3.5-10.8) 10^3/ul RBC (4.0-5.4) 10^6/ul Hgb (14.0-18.0) g/dl Hct (42-52) % MCV (80-94) fL MCH (27-31) pg MCHC (31-36) g/dl RDW (10.5-15) % Plt Count (150-450) 10^3/ul MPV (7.4-10.4) um3 Neut % (Auto) (38-83) % Lymph % (Auto) (25-47) % [place] % (Auto) (1-9) % Eos % (Auto) (0-6) % Baso % (Auto) (0-2) % Absolute Neuts (auto) (1.5-7.7) 10^3/ul Absolute Lymphs (auto) (1.0-4.8) 10^3/ul Absolute Monos (auto) (0-0.8) 10^3/ul Absolute Eos (auto) (0-0.6) 10^3/ul Absolute Basos (auto) (0-0.2) 10^3/ul Absolute Nucleated RBC 10^3/ul Nucleated RBC % INR (Anticoag Therapy) (0.77-1.02) APTT (26.0-36.3) seconds Sodium 135 (133-145) mmol/L Potassium 3.5 (3.5-5.0) mmol/L Chloride 105 (101-111) mmol/L Carbon Dioxide 23 (22-32) mmol/L Anion Gap 7 (2-11) mmol/L BUN 19 (6-24) mg/dL Creatinine 0.96 (0.67-1.17) mg/dL Est GFR ( Amer) 95.7 (>60) Est GFR (Non-Af Amer) 74.4 (>60) BUN/Creatinine Ratio 19.8 (8-20) Glucose 141 H (70-100) mg/dL Lactic Acid 0.9 (0.5-2.0) mmol/L Calcium 8.9 (8.6-10.3) mg/dL Total Bilirubin 0.60 (0.2-1.0) mg/dL AST 22 (13-39) U/L ALT 16 (7-52) U/L Alkaline Phosphatase 47 (34-104) U/L Troponin I 0.01 (<0.04) ng/mL B-Natriuretic Peptide ( - 100) pg/mL Total Protein 6.5 (6.4-8.9) g/dL Albumin 3.8 (3.2-5.2) g/dL Globulin 2.7 (2-4) g/dL Albumin/Globulin Ratio 1.4 (1-3) Procalcitonin 0.1 (<0.6) ng/mL Urine Color Urine Appearance Urine pH (5-9) Ur Specific [place] (1.010-1.030) Urine Protein (Negative) Urine Ketones (Negative) Urine Blood (Negative) Urine Nitrate (Negative) Urine Bilirubin (Negative) Urine Urobilinogen (Negative) Ur Leukocyte Esterase (Negative) Urine Glucose (Negative) Urine Ascorbic Acid (Negative) Influenza A (Rapid) (Negative) Influenza B (Rapid) (Negative) 09/29/17 09/29/17 Range/Units 01:04 01:45 WBC (3.5-10.8) 10^3/ul RBC (4.0-5.4) 10^6/ul Hgb (14.0-18.0) g/dl Hct (42-52) % MCV (80-94) fL MCH (27-31) pg MCHC (31-36) g/dl RDW (10.5-15) % Plt Count (150-450) 10^3/ul MPV (7.4-10.4) um3 Neut % (Auto) (38-83) % Lymph % (Auto) (25-47) % [place] % (Auto) (1-9) % Eos % (Auto) (0-6) % Baso % (Auto) (0-2) % Absolute Neuts (auto) (1.5-7.7) 10^3/ul Absolute Lymphs (auto) (1.0-4.8) 10^3/ul Absolute Monos (auto) (0-0.8) 10^3/ul Absolute Eos (auto) (0-0.6) 10^3/ul Absolute Basos (auto) (0-0.2) 10^3/ul Absolute Nucleated RBC 10^3/ul Nucleated RBC % INR (Anticoag Therapy) (0.77-1.02) APTT (26.0-36.3) seconds Sodium (133-145) mmol/L Potassium (3.5-5.0) mmol/L Chloride (101-111) mmol/L Carbon Dioxide (22-32) mmol/L Anion Gap (2-11) mmol/L BUN (6-24) mg/dL Creatinine (0.67-1.17) mg/dL Est GFR ( Amer) (>60) Est GFR (Non-Af Amer) (>60) BUN/Creatinine Ratio (8-20) Glucose (70-100) mg/dL Lactic Acid (0.5-2.0) mmol/L Calcium (8.6-10.3) mg/dL Total Bilirubin (0.2-1.0) mg/dL AST (13-39) U/L ALT (7-52) U/L Alkaline Phosphatase (34-104) U/L Troponin I (<0.04) ng/mL B-Natriuretic Peptide ( - 100) pg/mL Total Protein (6.4-8.9) g/dL Albumin (3.2-5.2) g/dL Globulin (2-4) g/dL Albumin/Globulin Ratio (1-3) Procalcitonin (<0.6) ng/mL Urine Color Radha Urine Appearance Clear Urine pH 5.0 (5-9) Ur Specific [place] 1.023 (1.010-1.030) Urine Protein Negative (Negative) Urine Ketones Negative (Negative) Urine Blood Negative (Negative) Urine Nitrate Negative (Negative) Urine Bilirubin Negative (Negative) Urine Urobilinogen Negative (Negative) Ur Leukocyte Esterase Negative (Negative) Urine Glucose Negative (Negative) Urine Ascorbic Acid * H (Negative) Influenza A (Rapid) Negative (Negative) Influenza B (Rapid) Negative (Negative) Assess/Plan/Problems-Billing Assessment: This is an 86 year old male patient admitted to [facility] for acute bronchitis and dehydration. - Patient Problems (1) DVT prophylaxis Current Visit: No Status: Acute Priority: Medium Code(s): UPD4524 - SNOMED Code(s): 057017645 Comment: - heparin SQ Q8h (2) Depression Code(s): F32.9 - MAJOR DEPRESSIVE DISORDER, SINGLE EPISODE, UNSPECIFIED SNOMED Code(s): 30082200 Comment: - Continue Effexor daily (3) GERD (gastroesophageal reflux disease) Code(s): K21.9 - GASTRO-ESOPHAGEAL REFLUX DISEASE WITHOUT ESOPHAGITIS SNOMED Code(s): 096196834 Comment: - Continue PPI (4) Rheumatoid arthritis Code(s): M06.9 - RHEUMATOID ARTHRITIS, UNSPECIFIED SNOMED Code(s): 57343471 Comment: - Continue sulfaslazine (5) Bronchitis Code(s): J40 - BRONCHITIS, NOT SPECIFIED ACUTE OR CHRONIC SNOMED Code(s): 16684157 Comment: - Acute, no consolidation appreciated - Currently afebrile - Receiving zithromax IV, will transition to PO today - CXR negative - Continue mucinex for congestion (6) Dehydration fever Code(s): R50.9 - FEVER, UNSPECIFIED SNOMED Code(s): 77627037 Comment: - Better after IVF - Remains afebrile (7) CAD (coronary artery disease) Code(s): I25.10 - ATHSCL HEART DISEASE OF [place] CORONARY ARTERY W/O ANG PCTRS SNOMED Code(s): 39210713 Comment: - Hx of stents and cardiomyopathy - Stable CV status at present Status and Disposition: Overall improvement noted. Will DC with rolling walker to assist with ambulation and rest periods. F/U with PCP this week to assess resp status. Optimized for DC home today. Counseling and/or Coordination of Care Minutes: Coordinated with patient, Whitney PETER and case mgmt team, time spent >30mins
[2017-09-30] MEDS: Cyanocobalamin TAB* 500 MCG PO SCH (12:12)
[2017-09-30 14:32] VITALS: BP 143/69
--- NOTE | 2017-10-01 03:02 | DS ---
CC: Dr. Pinon * DISCHARGE SUMMARY: DATE OF ADMISSION: 09/28/17 DATE OF DISCHARGE: 09/30/17 PRIMARY CARE PHYSICIAN: Dr. Pinon. ATTENDING PHYSICIAN: Dr. Franky Muñiz * (DICTATED BY ERNESTO MCMILLAN NP) HOSPITAL COURSE: This is a very pleasant [id number]-male patient, who presented to the emergency department on 09/28/17 with complaints of progressive weakness, shortness of breath, and cough. The patient also stated he has febrile illness for 24 hours with a T-max of 101 at home. The patient stated his weakness began increasing as his cough increased to the point where he was having trouble ambulating at home and was feeling progressively short of breath. The patient came to the emergency department for evaluation of upper respiratory illness. Chest x- ray at that time revealed no acute consolidation or infiltration or any effusion. The patient's temperature came down to normal. White blood cell count was normal. He was admitted to observation for acute dehydration; however, he was gently hydrated with normal saline and taken in overnight for observation status. He was started on azithromycin 500 mg IV piggyback. The patient was held overnight on the floors for rehydration and attention to his weakness. The patient stated the following morning, he was feeling progressively better; however, still had a fair amount of cough and shortness of breath and was unable to ambulate with a walker, still feeling short of breath in between. At some point, the patient still had clear lungs, again no consolidation, but still had significant amount of weakness. Also important to know, the patient does have severe case of rheumatoid arthritis that may have flared in setting of viral illness. The patient trialed a rolling walker on the morning of 09/30/17 after having 2 doses of azithromycin, some nebulizer treatments, and a fair amount of hydration. The patient stated he felt significantly better this morning, remained afebrile, and his laboratories were all within normal range as well as his vital signs. It was determined, the patient was medically optimized for discharge after discussion with patient and he felt he was stable enough to go home in the care of his . LABORATORY DATA: Laboratory values on 09/30/17 revealed WBCs 6.1, RBCs 4.08, hemoglobin 13.7, hematocrit 40, MCV 99, MCH 34, platelets 112. Chemistries revealed sodium 139, potassium 3.5, chloride 109, CO2 25, BUN 18, creatinine 0.88, GFR 82.3, calcium 8.5, glucose 91. Urinalysis was negative. Coags show an INR of 1.09, APTT 33.5. Influenza A negative. Influenza B also negative. PHYSICAL EXAMINATION: Vital Signs: Temperature 98.7, heart rate of 60, respiratory rate 16, O2 saturation 95% on room air, blood pressure 137/68. DISPOSITION: Again, the patient was discharged in stable condition in the care of his with a rolling walker for assistance. DISCHARGE MEDICATIONS: Include: 1. Tylenol 650 mg q.4 hours as needed for fever or body aches. 2. Low-dose aspirin 81 mg daily. 3. Lipitor 20 mg q.h.s. 4. Vitamin B12 2500 mg p.o. daily. 5. Gabapentin 100 mg daily. 6. Metoprolol succinate 25 mg in the evening. 7. Omeprazole 40 mg p.o. daily. 8. Azulfidine 500 mg p.o. b.i.d. 9. Venlafaxine XR 75 mg daily. 10. Azithromycin 500 mg 1 tab daily for 3 days to complete his 5-day course. CONDITION ON DISCHARGE: The patient was discharged in stable condition to home in the care of his . ERNESTO MCMILLAN, ROSALES [id number]/[facility] #: [id number] MTDD
== END 2017-09-30 15:15 | disposition home or self-care (01) ==
LOC: ED 23:35 → MED 09-29 03:29
PROVIDERS: ADMIT Internal Medicine; ATTEND Internal Medicine
DX: R05 Cough (principal); R06.02 Shortness of breath; R50.9 Fever, unspecified; I25.10 Atherosclerotic heart disease of native coronary artery without angina pectoris; Z95.5 Presence of coronary angioplasty implant and graft; Z95.1 Presence of aortocoronary bypass graft; K21.9 Gastro-esophageal reflux disease without esophagitis; I48.0 Paroxysmal atrial fibrillation; E78.5 Hyperlipidemia, unspecified; G62.9 Polyneuropathy, unspecified; M06.9 Rheumatoid arthritis, unspecified; Z79.82 Long term (current) use of aspirin; Z79.899 Other long term (current) drug therapy; Z88.0 Allergy status to penicillin; I45.10 Unspecified right bundle-branch block
CPT/HCPCS: 36415; 71010; 80048; 80053; 81003; 83605; 83880; 84145; 84484; 85025; 85610; 85730; 87040; 87502; 93005; 96365; 96366; 99284; A9270-GY; G0378; J0456; J1644

== ENCOUNTER → 2018-07-03 01:32 | Emergency (ER) | payer MEDICARE, BC ==
[~2018-07-03 01:32] MED LIST: fentaNYL* 50 MCG/ML 2 ML VIAL (100 MCG VIAL) ONE
[2018-07-03 01:38] VITALS: BP 151/72
--- OUTSIDE RECORDS SUMMARY | 2018-07-03 01:47 | XMS REPORT ---
:1930 External Reference #:[id number] Author Organization [facility] Address [address] [place] [address] [place] [address] Phone [phone] Care Team Providers Name Role Phone August Miles M.D. 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 Unavailable Payers Type Date Identification Numbers Payment Provider Subscriber Medicare Primary Effective: Policy Number: Medicare August Celeste 1995 [id number] PayID: [id number] [address] [place] [address] Medigap Part B Effective: Policy Number: BS Manpreet Celeste 2012 [id number] PayID: [id number] [address] [address] Medigap Part B Effective: Policy Number: BS [facility] August Celeste 2002 [id number] Expires: 2012 Group Number: [id number] PO Box Group Name: [id number] [id number] PayID: [id number] Problems Date Description Provider Status Onset: 08/31/2011 Electrocardiogram abnormal Petra Saha M.D. Onset: 08/31/2011 Right bundle branch block Petra Saha M.D. Onset: 08/31/2011 Coronary arteriosclerosis Petra Saha M.D. Onset: 08/31/2011 Benign essential hypertension Petra Saha M.D. Onset: 08/31/2011 Mitral valve disorder Petra Saha M.D. Onset: 08/31/2011 Hyperlipidemia Petra Saha M.D. Onset: 08/31/2011 Patient post percutaneous Marlee Murrell Active transluminal coronary angioplasty M.DJian Onset: 06/08/2013 Chest pain Marlee Murrell Active Katie Onset: 06/08/2013 Dyspnea Marlee Murrell Active MLiliane Onset: 10/28/2015 Essential hypertension Marlee Murrell Active Katie Onset: 02/23/2014 Premature beats Marlee Murrell Active Katie Family History Date Family Member(s) Problem(s) Comments General Arthritis Social History Type Date Description Comments Marital Status Lives With Cigarette Use Never Smoked Cigarettes ETOH Use Denies alcohol use Smoking Patient has never smoked Recreational Drug Use Denies Drug Use Daily Caffeine Consumes on average 1 cup of hot tea per once a week day Exercise Type/Frequency Exercises sporadically Allergies, Adverse Reactions, Alerts Date Description Reaction Status Severity Comments 09/09/2006 PCN active rash/hives Medications Medication Date Status Form Strength Qnty SIG Indications Ordering Provider Prednisone 06/30/ Active Tablets 5mg 90tabs 1 by M06.09 2017 mouth Jd, every day M.D. D3 Adult 06/30/ Active Chewtabs 1000Unit 90unit take one M17.9 2017 s capsule/t elpidio Miles M.D. daily by mouth Folic Acid 10/28/ Active Tablets 1mg 90tabs take one 2017 capsule/t elpidio Miles M.D. daily by mouth Cyanocobalamin 04/20/ Active Tablets 2500mcg 90tabs take one 2015 Sub capsule/t elpidio Miles M.D. daily by mouth Nitrostat 09/30/ Active Tablets 0.4mg 25tabs one sl Marlee 2013 Sub q5min up S. to 3 Maghaydah doses as , M.D. needed Aspirin 06/06/ Active Tablets 81mg 1 PO qd Marlee Murrell M.D. Omeprazole / Active Capsules 40mg 30caps 1 po qd Unknown 0000 DR Simvastatin / Active Tablets 40mg 30tabs 1 po qhs Unknown 0000 Venlafaxine HCL 00/ Active Tablets 150mg 60tabs 1 po Unknown 0000 daily Metoprolol 00/ Active Tablets ER 25mg 1 by Unknown Succinate ER 0000 24HR mouth every day Gabapentin / Active Capsules 100mg 1 by Unknown 0000 mouth tid Sulfasalazine / Active Tablets 500mg 180tab take 2 in August 0000 s the Jd, morning M.D. and 1 tablet by mouth in the evening Prednisone 05/20/ Hx Tablets 10mg 60tabs Take one M06.09 August 2018 - capsule/t Jd, 06/30/ ablet M.D. 2018 daily by mouth Urea 20 10/28/ Hx Cream 20% 85gm apply [facility] 2018 - twice Jd, Hydrating Cream 05/20/ daily M.D. 2018 Aspercreme Max 12/18/ Hx Liquid 16% 1units apply M06.09 August Roll-On 2017 - daily as Jd, Arthritis 05/20/ needed M.DJian Strength 2018 Crestor 09/16/ Hx Tablets 10mg 90tabs 1 PO qd Qutaybeh 2008 - S. 01/24/ Handy 2011 Katie Toprol XL 09/16/ Hx Tablets ER 25mg 15tabs 1/2 Qutaybeh 2008 - 24HR tablet po S. 12/26/ every 2 Handy 2010 days MJianDJian Nitroquick 05/12/ Hx Tablets 0.4mg 25tabs 1 s/l as Qutaybeh 2007 - Sub needed S. 09/30/ chest [facility] 2014 pain, , M.D. every 5 min. up to 3 tabs Naproxen 02/22/ Hx Tablets 500mg 60tabs 1 PO bid Qutaybeh 2008 - S. 08/30/ Handy 2009 Katie Gabapentin 02/22/ Hx Capsules 100mg 150cap 1 PO Am 3 Qutaybeh 2007 - s po PM S. 09/16/ Handy 2008 Katie Citalopram 02/22/ Hx Tablets 20mg 30tabs 1 PO qd Qutaybeh Hydrobromide 2007 - S. 04/18/ Handy Guallpa M.D. Rosuvastatin 02/22/ Hx 10mg one po qd Qutaybeh Calcium 2007 - S. 09/16/ [facility] 2008 Katie Simvastatin 09/08/ Hx Tablets 80mg 30tabs 1 po qd Qutaybeh 2006 - S. [facility] 2007 Katie Zocor 05/07/ Hx Tablets Dose 90tabs 1 po qd Qutaybeh 2006 - Unknown S. [facility] 2007 Katie Lisinopril 05/07/ Hx Tablets 5mg 1 PO qd Qutaybeh 2006 - S. 08/31/ [facility] 2010 Katie Lisinopril 12/18/ Hx Tablets 5mg 1 PO bid Qutaybeh 2006 - S. 05/07/ [facility] 2007 Katie Plavix 06/06/ Hx Tablets 75mg 30tabs 1 PO qd Qutaybeh 2005 - S. [facility] 2007 Katie Lexapro 06/06/ Hx Tablets 10mg 1 PO qd Qutaybeh 2005 - . [facility] 2007 Katie Lisinopril 06/06/ Hx Tablets 5mg 30tabs 1 PO qd Qutaybeh 2005 - S. [facility] 2007 Katie Lipitor 06/06/ Hx Tablets 40mg 1 PO qd Qutaybeh 2005 - S. 05/07/ [facility] Katie Valladares Sulfasalazine / Hx Tablets 500mg 1 po qd Unknown - 2010 Citalopram / Hx Tablets 20mg 1 po qd Unknown Hydrobromide - 2011 Iron Supplement / Hx Tablets 325(65Fe) 90tabs by mouth Unknown 0000 - mg every day 2014 Xarelto / Hx Tablets 20tabs 1 p.o Unknown 0000 - every day 2014 Sucralfate / Hx Tablets 1gm 1 by Unknown 0000 - mouth three 2017 times a day Brilinta / Hx Tablets 90mg 180tab Take 1 Qutaybeh 0000 - s Tablet By S. 12/16/ Mouth [facility] 2016 Twice , M.DJian Daily Immunizations CPT Code Status Date Vaccine Reaction Lot # [id number] Given 06/30/2018 Influenza Virus Vaccine, no immediate reaction [id number] Quadrivalent, Split, noted Preservative Free [id number] Given 11/21/2015 Pneumococcal Conjugate [id number] Vaccine 13 Valent For Intramuscular Use Vital Signs Date Vital Result Comment 06/30/2018 Height 70 inches 5'10" Weight 183.00 lb Heart Rate 85 /min BP Systolic Sitting 142 mmHg BP Diastolic Sitting 81 mmHg Respiratory Rate 14 /min BMI (Body Mass Index) 26.3 kg/m2 05/21/2018 Height 70 inches 5'10" Weight 183.00 lb w/shoes Heart Rate 80 /min BP Systolic Sitting 116 mmHg Lue Reg Cuff BP Diastolic Sitting 84 mmHg Lue Reg Cuff BMI (Body Mass Index) 26.3 kg/m2 Ejection Fraction 55-60% echo 11/17/15 05/20/2018 Height 70 inches 5'10" Weight 183.38 lb Heart Rate 72 /min BP Systolic Sitting 112 mmHg BP Diastolic Sitting 76 mmHg Pain Level 3 O2 % BldC Oximetry 96 % BMI (Body Mass Index) 26.3 kg/m2 10/28/2017 Height 70 inches 5'10" Weight 181.00 lb Heart Rate 80 /min BP Systolic Sitting 102 mmHg BP Diastolic Sitting 78 mmHg Respiratory Rate 16 /min Pain Level 4 BMI (Body Mass Index) 26.0 kg/m2 08/28/2017 Height 70 inches 5'10" Weight 183.12 lb with shoes Heart Rate 68 /min BP Systolic Sitting 135 mmHg LA reg cuff BP Diastolic Sitting 82 mmHg LA reg cuff BMI (Body Mass Index) 26.3 kg/m2 Ejection Fraction 55%-60% echo 11/17/15 05/28/2017 Height 70 inches 5'10" Weight 186.00 lb Heart Rate 72 /min BP Systolic Sitting 144 mmHg BP Diastolic Sitting 82 mmHg Respiratory Rate 14 /min Pain Level 0 BMI (Body Mass Index) 26.7 kg/m2 12/18/2016 Height 70 inches 5'10" Weight 183.00 lb Heart Rate 64 /min BP Systolic Sitting 118 mmHg BP Diastolic Sitting 70 mmHg Body Temperature 96.8 F Pain Level 0 BMI (Body Mass Index) 26.3 kg/m2 12/17/2016 Height 70 inches 5'10" Weight 183.75 lb with shoes Heart Rate 84 /min BP Systolic Sitting 152 mmHg LA reg cuff BP Diastolic Sitting 82 mmHg LA reg cuff BMI (Body Mass Index) 26.4 kg/m2 Ejection Fraction 55% - 60% echo 11/17/15 07/23/2016 Height 70 inches 5'10" Weight 174.00 lb Heart Rate 64 /min BP Systolic Sitting 130 mmHg BP Diastolic Sitting 86 mmHg Respiratory Rate 14 /min Body Temperature 96.9 F Pain Level 3 BMI (Body Mass Index) 25.0 kg/m2 06/05/2016 Height 70 inches 5'10" Weight 176.00 lb w/shoes Heart Rate 60 /min BP Systolic Sitting 150 mmHg LA reg cuff BP Diastolic Sitting 84 mmHg LA reg cuff BMI (Body Mass Index) 25.3 kg/m2 Ejection Fraction 55-60% Echo 11/17/15 04/20/2016 Height 70 inches 5'10" Weight 176.00 lb Heart Rate 88 /min BP Systolic Sitting 110 mmHg BP Diastolic Sitting 80 mmHg Body Temperature 97.9 F Pain Level 1 BMI (Body Mass Index) 25.3 kg/m2 11/21/2015 Height 70 inches Weight 176.12 lb Heart Rate 80 /min BP Systolic Sitting 120 mmHg BP Diastolic Sitting 70 mmHg Respiratory Rate 14 /min Pain Level 0 BMI (Body Mass Index) 25.3 kg/m2 10/28/2015 Height 70 inches 5'10" Weight 179.00 lb w/shoes Heart Rate 102 /min BP Systolic Sitting 110 mmHg LA reg cuff BP Diastolic Sitting 82 mmHg LA reg cuff BMI (Body Mass Index) 25.7 kg/m2 Ejection Fraction 55-60 echo 06/09/13 09/07/2015 Height 70 inches 5'10" Weight 175.38 lb w/ shoes Heart Rate 64 /min BP Systolic Sitting 140 mmHg Ra, reg BP Diastolic Sitting 82 mmHg Ra, reg BP Systolic Standing 128 mmHg Ra, reg- 78 BP Diastolic Standing 80 mmHg Ra, reg- 78 Respiratory Rate 20 /min BMI (Body Mass Index) 25.2 kg/m2 06/27/2015 Height 70 inches 5'10" Weight 174.00 lb Heart Rate 80 /min BP Systolic 150 mmHg LA reg BP Diastolic 86 mmHg LA reg BMI (Body Mass Index) 25.0 kg/m2 Ejection Fraction 55-60% 06/09/13 ECHO 09/30/2014 Height 70 inches 5'10" Weight 169.25 lb w/shoes Heart Rate 80 /min BP Systolic Sitting 120 mmHg LA reg cuff BP Diastolic Sitting 90 mmHg LA reg cuff Respiratory Rate 14 /min BMI (Body Mass Index) 24.3 kg/m2 02/23/2014 Height 70 inches 5'10" Weight 183.50 lb Heart Rate 80 /min BP Systolic Sitting 120 mmHg left, reg cuff BP Diastolic Sitting 70 mmHg left, reg cuff BMI (Body Mass Index) 26.3 kg/m2 06/24/2013 Height 70 inches 5'10" Weight 177.00 lb Heart Rate 74 /min BP Systolic 130 mmHg BP Diastolic 78 mmHg BMI (Body Mass Index) 25.4 kg/m2 12/10/2012 Height 70 inches 5'10" Weight 181.00 lb Heart Rate 72 /min BP Systolic 120 mmHg BP Diastolic 70 mmHg BMI (Body Mass Index) 26.0 kg/m2 04/04/2012 Height 70 inches 5'10" Weight 175.00 lb Heart Rate 65 /min BP Systolic 126 mmHg BP Diastolic 68 mmHg BMI (Body Mass Index) 25.1 kg/m2 08/31/2011 Height 70 inches 5'10" Weight 177.00 lb Heart Rate 84 /min BP Systolic 116 mmHg BP Diastolic 64 mmHg BMI (Body Mass Index) 25.4 kg/m2 01/24/2011 Weight 189.00 lb Heart Rate 76 /min BP Systolic Sitting 120 mmHg BP Diastolic Sitting 68 mmHg 04/18/2010 Height 70 inches 5'10" Weight 186.00 lb Heart Rate 68 /min BP Systolic Sitting 108 mmHg L BP Diastolic Sitting 60 mmHg L BMI (Body Mass Index) 26.7 kg/m2 08/30/2009 Weight 188.00 lb Heart Rate 54 /min BP Systolic Sitting 110 mmHg BP Diastolic Sitting 64 mmHg BP Systolic Standing 110 mmHg BP Diastolic Standing 70 mmHg Respiratory Rate 16 /min 03/01/2009 Weight 188.00 lb Heart Rate 53 /min BP Systolic Sitting 150 mmHg BP Diastolic Sitting 76 mmHg BP Systolic Standing 150 mmHg BP Diastolic Standing 76 mmHg Respiratory Rate 16 /min 09/16/2008 Height 70 inches 5'10" Weight 184.00 lb Heart Rate 70 /min BP Systolic Sitting 124 mmHg L BP Diastolic Sitting 80 mmHg L BMI (Body Mass Index) 26.4 kg/m2 02/23/2008 Height 70 inches 5'10" Weight 185.00 lb Heart Rate 51 /min BP Systolic Sitting 130 mmHg L BP Diastolic Sitting 80 mmHg L BMI (Body Mass Index) 26.5 kg/m2 09/08/2007 Height 70 inches 5'10" Weight 183.00 lb Heart Rate 71 /min BP Systolic Sitting 136 mmHg BP Diastolic Sitting 80 mmHg BMI (Body Mass Index) 26.3 kg/m2 05/07/2007 Height 70 inches 5'10" Weight 184.00 lb Heart Rate 80 /min BP Systolic Sitting 118 mmHg L BP Diastolic Sitting 70 mmHg L BMI (Body Mass Index) 26.4 kg/m2 01/22/2007 Height 70 inches 5'10" Weight 186.00 lb Heart Rate 62 /min BP Systolic Sitting 120 mmHg L BP Diastolic Sitting 60 mmHg L BMI (Body Mass Index) 26.7 kg/m2 12/18/2006 Height 70 inches 5'10" Weight 185.00 lb Heart Rate 56 /min BP Systolic Sitting 146 mmHg BP Diastolic Sitting 80 mmHg BMI (Body Mass Index) 26.5 kg/m2 09/09/2006 Height 70 inches 5'10" Weight 181.00 lb Heart Rate 60 /min BP Systolic Sitting 120 mmHg BP Diastolic Sitting 70 mmHg BP Systolic Standing 110 mmHg BP Diastolic Standing 70 mmHg Respiratory Rate 16 /min BMI (Body Mass Index) 26.0 kg/m2 06/06/2006 Height 70 inches 5'10" Weight 181.00 lb Heart Rate 76 /min BP Systolic Sitting 104 mmHg left arm, right 110/70 BP Diastolic Sitting 72 mmHg left arm, right 110/70 BP Systolic Standing 88 mmHg BP Diastolic Standing 60 mmHg BMI (Body Mass Index) 26.0 kg/m2 Results Test Date Test Result H/L Range Note Laboratory test finding 06/25/2018 TSH (Thyroid Stim 2.32 mcIU/mL 0.34- 5.60 Horm) CBC Auto Diff 06/25/2018 White Blood Count 9.2 10^3/uL 3.5-10.8 Red Blood Count 4.75 10^6/uL 4.00-5.40 Hemoglobin 16.2 g/dL 14.0-18.0 Hematocrit 48 % 42-52 Mean Corpuscular Volume 100 fL High 80-94 Mean Corpuscular Hemoglobin 34 pg High 27-31 Mean Corpuscular HGB Conc 34 g/dL 31-36 Red Cell Distribution Width 15 % 10.5-15 Platelet Count 157 10^3/uL 150-450 Mean Platelet Volume 8.6 um3 7.4-10.4 Abs Neutrophils 6.7 10^3/uL 1.5-7.7 Abs Lymphocytes 1.7 10^3/uL 1.0-4.8 Abs Monocytes 0.8 10^3/uL 0-0.8 Abs Eosinophils 0 10^3/uL 0-0.6 Abs Basophils 0 10^3/uL 0-0.2 Abs Nucleated RBC 0 10^3/uL Granulocyte % 72.7 % 38-83 Lymphocyte % 18.5 % Low 25-47 Monocyte % 8.5 % High 0-7 Eosinophil % 0 % 0-6 Basophil % 0.3 % 0-2 Nucleated Red Blood Cells % 0 Comp Metabolic Panel 06/25/2018 Sodium 141 mmol/L 135-145 Potassium 4.2 mmol/L 3.5-5.0 Chloride 105 mmol/L 101-111 Co2 Carbon Dioxide 29 mmol/L 22-32 Anion Gap 7 mmol/L 2-11 Glucose 83 mg/dL 70-100 Blood Urea Nitrogen 17 mg/dL 6-24 Creatinine 1.02 mg/dL 0.67-1.17 BUN/Creatinine Ratio 16.7 8-20 Calcium 9.3 mg/dL 8.6-10.3 Total Protein 6.6 g/dL 6.4-8.9 Albumin 4.1 g/dL 3.2-5.2 Globulin 2.5 g/dL 2-4 Albumin/Globulin Ratio 1.6 1-3 Total Bilirubin 0.50 mg/dL 0.2-1.0 Alkaline Phosphatase 57 U/L 34-104 Alt 25 U/L 7-52 Ast 24 U/L 13-39 Egfr Non- 69.2 >60 Egfr 83.8 >60 1 Laboratory test finding 06/25/2018 Erythrocyte Sed Rate 7 mm/Hr 0-40 C Reactive Protein 1.02 mg/L <8.01 Laboratory test finding 05/20/2018 Erythrocyte Sed Rate 12 mm/Hr 0-40 2 C Reactive Protein 1.38 mg/L <8.01 3 CBC Auto Diff 05/20/2018 White Blood Count 7.6 10^3/uL 3.5-10.8 Red Blood Count 4.65 10^6/uL 4.00-5.40 Hemoglobin 15.6 g/dL 14.0-18.0 Hematocrit 46 % 42-52 Mean Corpuscular Volume 99 fL High 80-94 Mean Corpuscular Hemoglobin 34 pg High 27-31 Mean Corpuscular HGB Conc 34 g/dL 31-36 Red Cell Distribution Width 14 % 10.5-15 Platelet Count 160 10^3/uL 150-450 Mean Platelet Volume 8.6 um3 7.4-10.4 Abs Neutrophils 4.6 10^3/uL 1.5-7.7 Abs Lymphocytes 2.1 10^3/uL 1.0-4.8 Abs Monocytes 0.8 10^3/uL 0-0.8 Abs Eosinophils 0 10^3/uL 0-0.6 Abs Basophils 0 10^3/uL 0-0.2 Abs Nucleated RBC 0 10^3/uL Granulocyte % 61.0 % 38-83 Lymphocyte % 28.0 % 25-47 Monocyte % 10.6 % High 0-7 Eosinophil % 0 % 0-6 Basophil % 0.4 % 0-2 Nucleated Red Blood Cells % 0 Comp Metabolic Panel 05/20/2018 Sodium 141 mmol/L 135-145 Potassium 4.2 mmol/L 3.5-5.0 Chloride 108 mmol/L 101-111 Co2 Carbon Dioxide 22 mmol/L 22-32 Anion Gap 11 mmol/L 2-11 Calcium 9.4 mg/dL 8.6-10.3 Albumin 4.1 g/dL 3.2-5.2 Total Bilirubin 0.60 mg/dL 0.2-1.0 Glucose 82 mg/dL 70-100 Blood Urea Nitrogen 23 mg/dL 6-24 Creatinine 1.11 mg/dL 0.67-1.17 BUN/Creatinine Ratio 20.7 High 8-20 Total Protein 6.8 g/dL 6.4-8.9 Globulin 2.7 g/dL 2-4 Albumin/Globulin Ratio 1.5 1-3 Alkaline Phosphatase 60 U/L 34-104 Alt 15 U/L 7-52 Ast 22 U/L 13-39 Egfr Non- 62.8 >60 Egfr 76.0 >60 4 Laboratory test finding 05/20/2018 Vitamin D, 1,25 Dihydroxy 44 pg/mL 18- 64 5 Laboratory test finding 10/30/2017 Potassium Redraw 3.8 mmol/L 3.5-5.0 Ast Redraw 23 U/L 13-39 Comp Metabolic Panel 10/28/2017 Sodium 140 mmol/L 133-145 Chloride 106 mmol/L 101-111 Co2 Carbon Dioxide 29 mmol/L 22-32 Glucose 140 mg/dL High 70-100 Blood Urea Nitrogen 23 mg/dL 6-24 Creatinine 1.07 mg/dL 0.67-1.17 BUN/Creatinine Ratio 21.5 High 8-20 Calcium 9.7 mg/dL 8.6-10.3 Total Protein 6.7 g/dL 6.4-8.9 Albumin 4.0 g/dL 3.2-5.2 Globulin 2.7 g/dL 2-4 Albumin/Globulin Ratio 1.5 1-3 Total Bilirubin 0.80 mg/dL 0.2-1.0 Alkaline Phosphatase 54 U/L 34-104 Alt 18 U/L 7-52 Egfr Non- 65.7 >60 Egfr 84.5 >60 6 Potassium TNP mmol/L 3.5-5.0 Anion Gap 5 mmol/L 2-11 Ast TNP U/L 13-39 CBC Auto Diff 10/28/2017 White Blood Count 7.0 10^3/uL 3.5-10.8 Red Blood Count 4.77 10^6/uL 4.0-5.4 Hemoglobin 15.9 g/dL 14.0-18.0 Hematocrit 47 % 42-52 Mean Corpuscular Volume 99 fL High 80-94 Mean Corpuscular Hemoglobin 33 pg High 27-31 Mean Corpuscular HGB Conc 34 g/dL 31-36 Red Cell Distribution Width 14 % 10.5-15 Platelet Count 159 10^3/uL 150-450 Mean Platelet Volume 9 um3 7.4-10.4 Abs Neutrophils 3.9 10^3/uL 1.5-7.7 Abs Lymphocytes 2.4 10^3/uL 1.0-4.8 Abs Monocytes 0.6 10^3/uL 0-0.8 Abs Eosinophils 0 10^3/uL 0-0.6 Abs Basophils 0 10^3/uL 0-0.2 Abs Nucleated RBC 0 10^3/uL Granulocyte % 56.7 % 38-83 Lymphocyte % 33.9 % 25-47 Monocyte % 9.0 % 1-9 Eosinophil % 0 % 0-6 Basophil % 0.4 % 0-2 Nucleated Red Blood Cells % 0.1 Laboratory test finding 10/28/2017 Rheumatoid Factor 27 IU/mL <15 7 Cyclic Citrullinated Pep Igg <15.6 U 8 Erythrocyte Sed Rate 12 mm/Hr 0-40 C Reactive Protein < 1.00 mg/L < 5.00 9 Comp Metabolic Panel 05/28/2017 Sodium 140 mmol/L 133-145 Potassium 4.3 mmol/L 3.5-5.0 Chloride 106 mmol/L 101-111 Co2 Carbon Dioxide 29 mmol/L 22-32 Anion Gap 5 mmol/L 2-11 Glucose 94 mg/dL 70-100 Blood Urea Nitrogen 28 mg/dL High 6-24 Creatinine 1.06 mg/dL 0.67-1.17 BUN/Creatinine Ratio 26.4 High 8-20 Calcium 9.0 mg/dL 8.6-10.3 Total Protein 6.6 g/dL 6.4-8.9 Albumin 4.1 g/dL 3.2-5.2 Globulin 2.5 g/dL 2-4 Albumin/Globulin Ratio 1.6 1-3 Total Bilirubin 0.70 mg/dL 0.2-1.0 Alkaline Phosphatase 58 U/L 34-104 Alt 18 U/L 7-52 Ast 21 U/L 13-39 Egfr Non- 66.4 >60 Egfr 85.4 >60 10 CBC Auto Diff 05/28/2017 White Blood Count 9.9 10^3/uL 3.5-10.8 Red Blood Count 4.88 10^6/uL 4.0-5.4 Hemoglobin 16.0 g/dL 14.0-18.0 Hematocrit 49 % 42-52 Mean Corpuscular Volume 101 fL High 80-94 Mean Corpuscular Hemoglobin 33 pg High 27-31 Mean Corpuscular HGB Conc 33 g/dL 31-36 Red Cell Distribution Width 15 % 10.5-15 Platelet Count 135 10^3/uL Low 150-450 Mean Platelet Volume 9 um3 7.4-10.4 Abs Neutrophils 6.7 10^3/uL 1.5-7.7 Abs Lymphocytes 2.1 10^3/uL 1.0-4.8 Abs Monocytes 1.0 10^3/uL High 0-0.8 Abs Eosinophils 0 10^3/uL 0-0.6 Abs Basophils 0 10^3/uL 0-0.2 Abs Nucleated RBC 0 10^3/uL Granulocyte % 68.1 % 38-83 Lymphocyte % 21.6 % Low 25-47 Monocyte % 9.9 % High 1-9 Eosinophil % 0 % 0-6 Basophil % 0.4 % 0-2 Nucleated Red Blood Cells % 0 Laboratory test finding 05/28/2017 Erythrocyte Sed Rate 8 mm/Hr 0-40 C Reactive Protein 2.75 mg/L < 5.00 11 Comp Metabolic Panel 12/18/2016 Sodium 140 mmol/L 133-145 Potassium 4.0 mmol/L 3.5-5.0 Chloride 107 mmol/L 101-111 Co2 Carbon Dioxide 31 mmol/L 22-32 Anion Gap 2 mmol/L 2-11 Glucose 127 mg/dL High 70-100 Blood Urea Nitrogen 24 mg/dL 6-24 Creatinine 1.08 mg/dL 0.67-1.17 BUN/Creatinine Ratio 22.2 High 8-20 Calcium 9.5 mg/dL 8.6-10.3 Total Protein 6.6 g/dL 6.4-8.9 Albumin 4.0 g/dL 3.2-5.2 Globulin 2.6 g/dL 2-4 Albumin/Globulin Ratio 1.5 1-3 Total Bilirubin 0.60 mg/dL 0.2-1.0 Alkaline Phosphatase 50 U/L 34-104 Alt 15 U/L 7-52 Ast 20 U/L 13-39 Egfr Non- 65.0 >60 Egfr 83.6 >60 12 CBC Auto Diff 12/18/2016 White Blood Count 5.7 10^3/uL 3.5-10.8 Red Blood Count 4.80 10^6/uL 4.0-5.4 Hemoglobin 15.6 g/dL 14.0-18.0 Hematocrit 47 % 42-52 Mean Corpuscular Volume 99 fL High 80-94 Mean Corpuscular Hemoglobin 32 pg High 27-31 Mean Corpuscular HGB Conc 33 g/dL 31-36 Red Cell Distribution Width 15 % 10.5-15 Platelet Count 137 10^3/uL Low 150-450 Mean Platelet Volume 9 um3 7.4-10.4 Abs Neutrophils 3.0 10^3/uL 1.5-7.7 Abs Lymphocytes 2.1 10^3/uL 1.0-4.8 Abs Monocytes 0.5 10^3/uL 0-0.8 Abs Eosinophils 0 10^3/uL 0-0.6 Abs Basophils 0 10^3/uL 0-0.2 Abs Nucleated RBC 0 10^3/uL Granulocyte % 53.7 % 38-83 Lymphocyte % 37.0 % 25-47 Monocyte % 9.0 % 1-9 Eosinophil % 0 % 0-6 Basophil % 0.3 % 0-2 Nucleated Red Blood Cells % 0 Laboratory test finding 12/18/2016 C Reactive Protein < 1.00 mg/L < 5.00 13 Erythrocyte Sed Rate 8 mm/Hr 0-40 14 Comp Metabolic Panel 07/23/2016 Sodium 140 mmol/L 133-145 Potassium 4.0 mmol/L 3.5-5.0 Chloride 105 mmol/L 101-111 Co2 Carbon Dioxide 29 mmol/L 22-32 Anion Gap 6 mmol/L 2-11 Glucose 91 mg/dL 70-100 Blood Urea Nitrogen 18 mg/dL 6-24 Creatinine 1.02 mg/dL 0.67-1.17 BUN/Creatinine Ratio 17.6 8-20 Calcium 9.5 mg/dL 8.6-10.3 Total Protein 6.5 g/dL 6.4-8.9 Albumin 4.1 g/dL 3.2-5.2 Globulin 2.4 g/dL 2-4 Albumin/Globulin Ratio 1.7 1-3 Total Bilirubin 0.60 mg/dL 0.2-1.0 Alkaline Phosphatase 47 U/L 34-104 Alt 14 U/L 7-52 Ast 19 U/L 13-39 Egfr Non- 69.6 >60 Egfr 89.5 >60 15 CBC Auto Diff 07/23/2016 White Blood Count 6.4 10^3/uL 3.5-10.8 Red Blood Count 4.72 10^6/uL 4.0-5.4 Hemoglobin 15.4 g/dL 14.0-18.0 Hematocrit 47 % 42-52 Mean Corpuscular Volume 99 fL High 80-94 Mean Corpuscular Hemoglobin 33 pg High 27-31 Mean Corpuscular HGB Conc 33 g/dL 31-36 Red Cell Distribution Width 15 % 10.5-15 Platelet Count 156 10^3/uL 150-450 Mean Platelet Volume 9 um3 7.4-10.4 Abs Neutrophils 3.4 10^3/uL 1.5-7.7 Abs Lymphocytes 2.1 10^3/uL 1.0-4.8 Abs Monocytes 0.8 10^3/uL 0-0.8 Abs Eosinophils 0 10^3/uL 0-0.6 Abs Basophils 0 10^3/uL 0-0.2 Abs Nucleated RBC 0.01 10^3/uL Granulocyte % 53.9 % 38-83 Lymphocyte % 32.8 % 25-47 Monocyte % 13.1 % High 1-9 Eosinophil % 0.1 % 0-6 Basophil % 0.1 % 0-2 Nucleated Red Blood Cells % 0.1 Laboratory test finding 07/23/2016 C Reactive Protein < 1.00 mg/L < 5.00 16 Erythrocyte Sed Rate 10 mm/Hr 0-40 17 Laboratory test finding 04/20/2016 TSH (Thyroid Stim Horm) 4.85 ?IU/mL 0.34-5.60 Creatine Kinase(CK) 45 U/L 10-223 Vitamin B12 217 pg/mL 180-914 18 Comp Metabolic Panel 04/20/2016 Sodium 139 mmol/L 133-145 Potassium 4.1 mmol/L 3.5-5.0 Chloride 108 mmol/L 101-111 Co2 Carbon Dioxide 25 mmol/L 22-32 Anion Gap 6 mmol/L 2-11 Glucose 113 mg/dL High 70-100 Blood Urea Nitrogen 23 mg/dL 6-24 Creatinine 0.95 mg/dL 0.67-1.17 BUN/Creatinine Ratio 24.2 High 8-20 Calcium 9.1 mg/dL 8.6-10.3 Total Protein 6.7 g/dL 6.4-8.9 Albumin 4.0 g/dL 3.2-5.2 Globulin 2.7 g/dL 2-4 Albumin/Globulin Ratio 1.5 1-3 Total Bilirubin 0.70 mg/dL 0.2-1.0 Alkaline Phosphatase 52 U/L 34-104 Alt 17 U/L 7-52 Ast 22 U/L 13-39 Egfr Non- 75.5 >60 Egfr 97.1 >60 19 CBC Auto Diff 04/20/2016 White Blood Count 7.2 10^3/uL 3.5-10.8 Red Blood Count 4.59 10^6/uL 4.0-5.4 Hemoglobin 14.9 g/dL 14.0-18.0 Hematocrit 45 % 42-52 Mean Corpuscular Volume 98 fL High 80-94 Mean Corpuscular Hemoglobin 33 pg High 27-31 Mean Corpuscular HGB Conc 33 g/dL 31-36 Red Cell Distribution Width 14 % 10.5-15 Platelet Count 158 10^3/uL 150-450 Mean Platelet Volume 9 um3 7.4-10.4 Abs Neutrophils 4.3 10^3/uL 1.5-7.7 Abs Lymphocytes 2.0 10^3/uL 1.0-4.8 Abs Monocytes 0.9 10^3/uL High 0-0.8 Abs Eosinophils 0 10^3/uL 0-0.6 Abs Basophils 0 10^3/uL 0-0.2 Abs Nucleated RBC 0 10^3/uL Granulocyte % 60.1 % 38-83 Lymphocyte % 27.2 % 25-47 Monocyte % 12.3 % High 1-9 Eosinophil % 0 % 0-6 Basophil % 0.4 % 0-2 Nucleated Red Blood Cells % 0.1 Laboratory test finding 04/20/2016 Erythrocyte Sed Rate 15 mm/Hr 0-40 C Reactive Protein < 1.00 mg/L < 5.00 20 Inr/Protime 06/09/2013 Inr 0.97 0.87-0.97 Basic Metabolic Panel 06/09/2013 Sodium 134 mmol/L 133-145 Potassium 4.1 mmol/L 3.5-5.0 Chloride 107 mmol/L 101-111 Co2 Carbon Dioxide 25.0 mmol/L 22-32 Anion Gap 2.0 mmol/L 2-11 Glucose 111 mg/dL High 70-100 Blood Urea Nitrogen 20 mg/dL 6-24 Creatinine 0.90 mg/dL 0.50-1.40 BUN/Creatinine Ratio 22.2 High 8-20 Calcium 9.2 mg/dL 8.1-9.9 Egfr Non- 81.0 >60 Egfr 104.2 >60 21 CBC Auto Diff 06/09/2013 White Blood Count 6.2 10^3/uL 4.8-10.8 Red Blood Count 4.85 10^6/uL 4.0-5.4 Hemoglobin 16.2 g/dL 14.0-18.0 Hematocrit 47 % 42-52 Mean Corpuscular Volume 97 fL High 80-94 Mean Corpuscular Hemoglobin 33 pg High 27-31 Mean Corpuscular HGB Conc 34 g/dL 31-36 Red Cell Distribution Width 15 % 10.5-15 Platelet Count 143 10^3/uL Low 150-450 Mean Platelet Volume 9 um3 7.4-10.4 Abs Neutrophils 3.2 10^3/uL 1.5-7.7 Abs Lymphocytes 2.2 10^3/uL 1.0-4.8 Abs Monocytes 0.7 10^3/uL 0-0.8 Abs Eosinophils 0 10^3/uL 0-0.6 Abs Basophils 0 10^3/uL 0-0.2 Abs Nucleated RBC 0 10^3/uL Granulocyte % 52.6 % 38-83 Lymphocyte % 36.1 % 25-47 Monocyte % 11.2 % High 1-9 Eosinophil % 0.1 % 0-6 Basophil % 0 % 0-2 Nucleated Red Blood Cells % 0.1 Cath Panel 06/09/2013 Activated Partial Thrombo Time 32.8 seconds 22.18- 37.18 22 1 Because ethnic data is not always readily available, this report includes an eGFR for both -Americans and non- Americans. The National Kidney Disease Education Program (NKDEP) does not endorse the use of the MDRD equation for patients that are not between the ages of 18 and 70, are , have extremes of body size, muscle mass, or nutritional status, or are non- or non-. According to the National Kidney Foundation, irrespective of diagnosis, the stage of the disease is based on the level of kidney function: Stage Description GFR(mL/min/1.73 m(2)) 1 Kidney damage with normal or decreased GFR 90 2 Kidney damage with mild decrease in GFR 60-89 3 Moderate decrease in GFR 30-59 4 Severe decrease in GFR 15-29 5 Kidney failure <15 (or dialysis) 2 Please check labs today 3 Please check labs today 4 Because ethnic data is not always readily available, this report includes an eGFR for both -Americans and non- Americans. The National Kidney Disease Education Program (NKDEP) does not endorse the use of the MDRD equation for patients that are not between the ages of 18 and 70, are , have extremes of body size, muscle mass, or nutritional status, or are non- or non-. According to the National Kidney Foundation, irrespective of diagnosis, the stage of the disease is based on the level of kidney function: Stage Description GFR(mL/min/1.73 m(2)) 1 Kidney damage with normal or decreased GFR 90 2 Kidney damage with mild decrease in GFR 60-89 3 Moderate decrease in GFR 30-59 4 Severe decrease in GFR 15-29 5 Kidney failure <15 (or dialysis) 5 ADDITIONAL INFORMATION This test was developed and its performance characteristics determined by [facility] in a manner consistent with CLIA requirements. This test has not been cleared or approved by the U.S. Food and Drug Administration. Test Performed by: [facility] [address] [place] [address] 6 Because ethnic data is not always readily available, this report includes an eGFR for both -Americans and non- Americans. The National Kidney Disease Education Program (NKDEP) does not endorse the use of the MDRD equation for patients that are not between the ages of 18 and 70, are , have extremes of body size, muscle mass, or nutritional status, or are non- or non-. According to the National Kidney Foundation, irrespective of diagnosis, the stage of the disease is based on the level of kidney function: Stage Description GFR(mL/min/1.73 m(2)) 1 Kidney damage with normal or decreased GFR 90 2 Kidney damage with mild decrease in GFR 60-89 3 Moderate decrease in GFR 30-59 4 Severe decrease in GFR 15-29 5 Kidney failure <15 (or dialysis) 7 Test Performed by: [facility] [place] [address] [place] [address] 8 REFERENCE VALUE <20.0 (Negative) Test Performed by: [facility] [address] [place] [address] 9 Acute inflammation: >10.00 10 Because ethnic data is not always readily available, this report includes an eGFR for both -Americans and non- Americans. The National Kidney Disease Education Program (NKDEP) does not endorse the use of the MDRD equation for patients that are not between the ages of 18 and 70, are , have extremes of body size, muscle mass, or nutritional status, or are non- or non-. According to the National Kidney Foundation, irrespective of diagnosis, the stage of the disease is based on the level of kidney function: Stage Description GFR(mL/min/1.73 m(2)) 1 Kidney damage with normal or decreased GFR 90 2 Kidney damage with mild decrease in GFR 60-89 3 Moderate decrease in GFR 30-59 4 Severe decrease in GFR 15-29 5 Kidney failure <15 (or dialysis) 11 Acute inflammation: >10.00 12 Because ethnic data is not always readily available, this report includes an eGFR for both -Americans and non- Americans. The National Kidney Disease Education Program (NKDEP) does not endorse the use of the MDRD equation for patients that are not between the ages of 18 and 70, are , have extremes of body size, muscle mass, or nutritional status, or are non- or non-. According to the National Kidney Foundation, irrespective of diagnosis, the stage of the disease is based on the level of kidney function: Stage Description GFR(mL/min/1.73 m(2)) 1 Kidney damage with normal or decreased GFR 90 2 Kidney damage with mild decrease in GFR 60-89 3 Moderate decrease in GFR 30-59 4 Severe decrease in GFR 15-29 5 Kidney failure <15 (or dialysis) 13 Acute inflammation: >10.00 14 Please check every 3 months 15 Because ethnic data is not always readily available, this report includes an eGFR for both -Americans and non- Americans. The National Kidney Disease Education Program (NKDEP) does not endorse the use of the MDRD equation for patients that are not between the ages of 18 and 70, are , have extremes of body size, muscle mass, or nutritional status, or are non- or non-. According to the National Kidney Foundation, irrespective of diagnosis, the stage of the disease is based on the level of kidney function: Stage Description GFR(mL/min/1.73 m(2)) 1 Kidney damage with normal or decreased GFR 90 2 Kidney damage with mild decrease in GFR 60-89 3 Moderate decrease in GFR 30-59 4 Severe decrease in GFR 15-29 5 Kidney failure <15 (or dialysis) 16 Acute inflammation: >10.00 17 Please check this week 18 Normal Range 180 to 914 Indeterminate Range 145 to 180 Deficient Range <145 19 Because ethnic data is not always readily available, this report includes an eGFR for both -Americans and non- Americans. The National Kidney Disease Education Program (NKDEP) does not endorse the use of the MDRD equation for patients that are not between the ages of 18 and 70, are , have extremes of body size, muscle mass, or nutritional status, or are non- or non-. According to the National Kidney Foundation, irrespective of diagnosis, the stage of the disease is based on the level of kidney function: Stage Description GFR(mL/min/1.73 m(2)) 1 Kidney damage with normal or decreased GFR 90 2 Kidney damage with mild decrease in GFR 60-89 3 Moderate decrease in GFR 30-59 4 Severe decrease in GFR 15-29 5 Kidney failure <15 (or dialysis) 20 Acute inflammation: >10.00 21 Because ethnic data is not always readily available, this report includes an eGFR for both -Americans and non- Americans. The National Kidney Disease Education Program (NKDEP) does not endorse the use of the MDRD equation for patients that are not between the ages of 18 and 70, are , have extremes of body size, muscle mass, or nutritional status, or are non- or non-. According to the National Kidney Foundation, irrespective of diagnosis, the stage of the disease is based on the level of kidney function: Stage Description GFR(mL/min/1.73 m(2)) 1 Kidney damage with normal or decreased GFR 90 2 Kidney damage with mild decrease in GFR 60-89 3 Moderate decrease in GFR 30-59 4 Severe decrease in GFR 15-29 5 Kidney failure <15 (or dialysis) 22 LABS TO BE DRAWN BY 06/16/13. cc: Dr. Kaiser Procedures Date CPT Code Description Status 05/21/2018 20610 EKG Tracing & Interpretation Completed 08/28/2017 61971 EKG Tracing & Interpretation Completed 12/17/2016 43450 EKG Tracing & Interpretation Completed 06/05/2016 35811 EKG Tracing & Interpretation Completed 11/17/2015 08600 ECHO Transthoracic, Real-Time 2D With Doppler And Color Completed Flow 10/28/2015 86719 EKG Tracing & Interpretation Completed 09/01/2015 58023 EKG, Interpretation Only Completed 08/31/2015 15432 Percutaneous Transcatheter Placement Of Intracoronary Completed Stent 08/31/2015 16869 EKG, Interpretation Only Completed 08/31/2015 17612 Left Heart Cath. Incl S/I Coronaries, Angio S/I V Gram Completed If Done 08/30/2015 42591 Treadmill Interp/Report Only Completed 08/30/2015 13542 Stress Test Supervsn W/Out I/R Completed 06/27/2015 93535 EKG Tracing & Interpretation Completed 09/30/2014 02719 EKG Tracing & Interpretation Completed 02/23/2014 04265 EKG Tracing & Interpretation Completed 06/18/2013 45198 EKG, Interpretation Only Completed 06/18/2013 52183 EKG, Interpretation Only Completed 06/18/2013 07677 EKG, Interpretation Only Completed 06/18/2013 59442 Left Health Catheterization W/Inj For Left Completed Ventriculography,S&I 06/18/2013 79921 Cath PLMT&NJX L Ventriculog Img S&I Completed 06/18/2013 70450 Left Heart Cath. Incl S/I Coronaries, Angio S/I V Gram Completed If Done 06/17/2013 14144 EKG, Interpretation Only Completed 06/10/2013 77695 Holter Monitor Review (24 hr)dr review & interp only Completed 06/09/2013 42192 ECHO Transthoracic, Real-Time 2D With Doppler And Color Completed Flow 06/08/2013 71722 ECHO Stress Test Incl Perf Contiuous ekg Monitoring Completed W/Phys Superv 06/08/2013 02161 ECHO Stress Test Incl Perf Contiuous ekg Monitoring Completed W/Phys Superv 06/08/2013 98728 EKG Tracing & Interpretation Completed 12/10/2012 74845 EKG Tracing & Interpretation Completed 04/04/2012 17570 EKG Tracing & Interpretation Completed 08/31/2011 03930 EKG Tracing & Interpretation Completed 03/01/2011 72245 ECHO Transthoracic, Real-Time 2D With Doppler And Color Completed Flow 02/19/2011 03179 ECHO Stress Test Incl Perf Contiuous ekg Monitoring Completed W/Phys Superv 01/24/2011 76485 EKG Tracing & Interpretation Completed 04/18/2010 11897 EKG Tracing & Interpretation Completed 02/09/2010 27279 ECHO Stress Test Incl Perf Contiuous ekg Monitoring Completed W/Phys Superv 01/20/2010 90962 ECHO Transthoracic, Real-Time 2D With Doppler And Color Completed Flow 08/30/2009 89111 EKG Tracing & Interpretation Completed 03/01/2009 31164 EKG Tracing & Interpretation Completed 02/22/2009 63262 ECHO Stress Test Incl Perf Contiuous ekg Monitoring Completed W/Phys Superv 02/22/2009 76535 ECHO Stress Test Incl Perf Contiuous ekg Monitoring Completed W/Phys Superv 02/11/2009 21341 Color Doppler Completed 02/11/2009 84556 Pulse Doppler & Continuous Wave Completed 02/11/2009 84117 Echocardiogram Completed 02/11/2009 52352 ECHO Transthoracic, Real-Time 2D With Doppler And Color Completed Flow 09/16/2008 39764 EKG Tracing & Interpretation Completed 09/16/2008 65210 EKG Tracing & Interpretation Completed 04/13/2008 87634 Stress Test Completed 04/13/2008 74009 Stress Test Completed 04/13/2008 24945 Stress Test Completed 04/13/2008 23488 ECHO/Stress Completed 04/13/2008 22136 ECHO/Stress Completed 02/23/2008 38519 EKG Tracing & Interpretation Completed 02/23/2008 88850 EKG Tracing & Interpretation Completed 01/16/2008 75401 Color Doppler Completed 01/16/2008 60015 Color Doppler Completed 01/16/2008 40387 Pulse Doppler & Continuous Wave Completed 01/16/2008 89316 Echocardiogram Completed 01/16/2008 00801 Echocardiogram Completed 09/08/2007 52084 EKG Tracing & Interpretation Completed 12/12/2006 85410 ECHO/Stress Completed 12/12/2006 04613 Stress Test Completed 12/12/2006 88623 Stress Test Completed 2006 90420 Color Doppler Completed 2006 36501 Color Doppler Completed 2006 13764 Pulse Doppler & Continuous Wave Completed 2006 39816 Echocardiogram Completed 2006 84952 Echocardiogram Completed 09/09/2006 85262 EKG Tracing & Interpretation Completed 09/09/2006 93826 EKG Tracing & Interpretation Completed 06/06/2006 32955 EKG Tracing & Interpretation Completed 06/06/2006 51592 EKG Tracing & Interpretation Completed 12/24/2005 29673 Selective Coronary Angiography Completed 12/24/2005 42351 S/I/R Inj Proc Vent &/Or Atrial Completed 12/24/2005 07014 Coronary Angiography Completed 12/24/2005 42576 Inj Proc LFT Vent/LFT Atrl Angio Completed 12/24/2005 20601 Left Heart Catheterization Completed 12/22/2005 43041 ECHO/Stress Completed 12/22/2005 46663 Treadmill Interp/Report Only Completed Encounters Type Date Location Provider CPT E/M Dx Office Visit 06/30/2018 [facility] August Miles M.D. 84840 M06.09 1:40p Of [facility] Z79.52 Z79.899 M17.9 Z23 Office Visit 05/21/2018 4:00p [facility] Marlee Murrell, 02448 I34.0 MJianDJian I10 I45.10 I25.110 E78.5 Office Visit 05/20/2018 1:00p [facility] August Miles 81651 M06.09 Of Neftali Wilson M17.9 ZIvis.899 R26.2 Z79.52 Office Visit 10/28/2017 11:00a [facility] August Miles 46631 M06.09 Of Neftali Florian79.89Marleni M17.9 M19.049 Office Visit 09/30/2017 7:09a [facility], Alyssa Barrios 18936 R50.9 Hospitalists ROSALES Tineo E86.0 J20.9 I25.10 Office Visit 09/29/2017 7:08a [facility], Essie Martinez, 93926 R50.9 Hospitalists Katie I25.10 J20.9 E86.0 Office Visit 08/28/2017 3:40p [facility] Marlee Murrell, 86527 I34.0 MLiliane I25.10 I10 E78.5 Office Visit 05/28/2017 11:40a [facility] August Miles 49849 M06.09 Of Neftali Florian79.899 M17.9 M19.041 Office Visit 12/18/2016 10:00a [facility] August Miles 19927 M06.09 Of [employer] M.D. Z79.899 R20.8 M17.9 Office Visit 12/17/2016 3:00p [facility] Handy, 84339 I34.0 M.D. I25.10 I10 E78.5 R06.02 I45.10 I25.2 Office Visit 07/23/2016 1:20p [facility] August Miles, 55234 M06.09 Of [employer] M.D. Z79.899 R20.8 Office Visit 06/05/2016 9:40a [facility] SJian Murrell, 95817 I34.0 M.D. I25.10 I10 E78.5 I45.10 Office Visit 04/20/2016 10:40a [facility] August Miles, 84592 M06.09 Of [employer] M.D. Z79.899 M17.9 R53.83 R20.8 Office Visit 11/21/2015 11:00a [facility] August Miles, 20773 M06.09 Of [employer] M.D. Z79.899 I34.0 M17.9 Z23 Office Visit 10/28/2015 3:20p [facility] Auditahasmukh SJian Murrell, 56523 I25.10 M.D. E78.5 I25.110 I10 I34.0 I45.19 R94.31 R06.02 Office Visit 09/07/2015 9:40a [facility] Of Cortney Newsome, 25232 I25.10 Gas Check Pad Maker AT [facility], [facility] E78.5 Office Visit 09/01/2015 2:20p [facility] Of Cortney Newsome, 95526 I25.10 Gas Check Pad Maker AT [facility] [place], [facility] Office Visit 09/01/2015 10:22a [facility], Patrice Bain, 04829 I25.110 Hospitalists MLiliane K21.9 Office Visit 08/31/2015 10:22a [facility],nuria Bain, 82637 I25.110 Hospitalists MLiliane K21.9 Office Visit 08/30/2015 2:19p [facility] Of Cortney Newsome, 22892 I20.0 Gas Check Pad Maker AT [facility] , FACC, FSCAI R94.31 R07.9 Office Visit 08/30/2015 10:21a [facility] [place] [address] I25.110 Assoc,pc Hospitalists K21.9 Office Visit 08/29/2015 10:20a [facility], Deepa Tomlin N.Radha. 16849 I25.110 Hospitalists K21.9 Office Visit 06/27/2015 2:00p [facility] Qutaybeh S. Maghaydah, 85077 401.1 M.D. 414.01 272.4 424.0 426.4 794.31 Office Visit 09/30/2014 3:20p [facility] Qutaybeh S. Maghaydah, 70183 401.1 M.D. 414.01 272.4 424.0 794.31 426.4 Office Visit 02/23/2014 4:00p [facility] Qutaybeh S. Maghaydah, 75568 401.1 M.D. 414.01 272.4 424.0 794.31 426.4 427.69 Office Visit 06/24/2013 2:20p [facility] Qutaybeh S. Maghaydah, 93293 401.1 M.D. 414.01 272.4 424.0 Office Visit 06/18/2013 7:17p [facility], Kary Ruffin, 47088 411.1 Hospitalists M.D. 414.01 427.31 V45.01 Office Visit 06/18/2013 1:30p [facility] Qutaybeh S. Maghaydah, 70022 414.01 M.D. 794.31 786.50 427.31 426.4 Office Visit 06/17/2013 7:16p [facility],pc Kary Ruffin, 34633 411.1 Hospitalists M.D. 414.01 427.31 V45.01 Office Visit 06/17/2013 8:17a [facility] Qutaybeh S. Maghaydah, 54579 414.01 M.D. 427.31 794.31 786.50 Office Visit 06/16/2013 7:16p [facility], Essie Martinez, 21671 411.1 Hospitalists M.D. 414.01 427.31 V45.01 Office Visit 06/08/2013 2:30p [facility] Qutaybeh S. Maghaydah, 38369 786.05 M.D. 786.50 401.1 414.01 426.4 794.31 Office Visit 12/10/2012 11:00a [facility] Qutaybeh S. Maghaydah, 89796 794.31 M.D. 426.4 414.01 401.1 424.0 272.4 Office Visit 04/04/2012 10:40a [facility] Qutaybeh S. Maghaydah, 76840 794.31 M.D. 426.4 414.01 401.1 424.0 272.4 Office Visit 08/31/2011 2:40p [facility] Qutaybeh S. Maghaydah, 99375 794.31 M.D. 426.4 414.01 401.1 424.0 272.4 V45.82 Office Visit 02/19/2011 3:30p [facility] Qutaybeh S. Maghaydah, 26170 414.01 M.D. 401.1 426.4 794.31 Office Visit 01/24/2011 3:40p [facility] Qutaybeh S. Maghaydah, 25611 414.01 M.D. 401.1 424.0 272.4 426.4 V45.82 Office Visit 04/18/2010 3:20p [facility] Qutaybeh S. Maghaydah, 03087 414.01 M.D. 401.1 424.0 272.4 Office Visit 08/30/2009 10:10a [facility] Qutaybeh S. Maghaydah, 93942 414.01 M.D. 401.1 424.0 272.4 426.4 Office Visit 03/01/2009 11:10a [facility] Qutaybeh S. Maghaydah, 40436 414.01 M.D. V45.82 401.1 424.0 272.4 426.4 Office Visit 09/16/2008 9:40a [facility] Marlee Murrell, 90117 414.01 M.D. 424.1 424.0 272.4 Office Visit 02/23/2008 1:40p [facility] Auditamolina S. Handy, 14955 414.01 M.D. 401.1 V45.82 424.1 424.0 272.4 794.31 Office Visit 09/08/2007 9:20a [facility] Auditamolina S. Handy, 64980 414.01 M.D. 401.1 272.4 V45.82 424.1 424.0 794.31 Office Visit 05/07/2007 3:20p [facility] Auditamolina S. Handy, 78247 414.01 M.D. 401.1 272.4 V45.82 Office Visit 01/22/2007 4:00p [facility] Auditamolina S. Handy, 93999 414.01 M.D. 401.1 272.4 V45.82 Office Visit 12/18/2006 9:40a [facility] Marlee S. Handy, 44128 414.01 M.D. 401.0 272.4 Office Visit 09/09/2006 9:00a [facility] Marlee S. Handy, 06048 414.01 M.D. 794.31 V45.82 272.4 Office Visit 06/06/2006 1:40p [facility] Marlee S. Handy, 89881 414.01 M.D. 427.31 Plan of Care Future Appointment(s):09/29/2018 1:40 pm - August Miles M.D. 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
--- NOTE | 2018-07-03 05:36 | ED ---
ED Suture/Wound Check - HPI Summary HPI Summary: The pt is a 87 y.o Male who is presenting to the [facility] with a chief complaint of right arm pain s/p surgery. The pt states he had a surgery on her right hand earlier on 07/02/18 in the morning at [facility] due to rheumatoid arthritis. No complications from the surgery were reported and the pt was able to return home safely and without incidence. Pts daughter states the pt was feeling discomfort in the arm after they had returned home and the pain was constant. The pain was rated to be 10/10 severity initially and diffuse over the right arm. Pain medication was taken and the pain did not reside (low dose aspirin). Symptoms aggravated by nothing. Symptoms alleviated by nothing. Pt also reports minor bleeding at the area of the surgical wound. - History Of Current Complaint Chief Complaint: EDExtremityUpper Stated Complaint: RIGHT HAND PAIN Time Seen by Provider: 07/03/18 01:57 Hx Obtained From: Patient Onset/Duration: Lasting Hours - Since morning of 07/02/18, Still Present Severity: Severe Pain Intensity: 10 Pain Scale Used: 0-10 Numeric - Allergies/Home Medications Allergies/Adverse Reactions: Allergies Allergy/AdvReac Type Severity Reaction Status Date / Time Penicillins Allergy Hives Verified 07/03/18 01:39 PMH/Surg Hx/FS Hx/Imm Hx Endocrine/Hematology History: Denies: Hx Anticoagulant Therapy, Hx Blood Disorders, Hx Blood Transfusions, Hx Bone Marrow Disease, Hx Diabetes, Hx Systemic Lupus Erythematosus, Hx Sickle Cell Disease, Hx Thyroid Disease, Hx Anemia, Hx Unexplained Bleeding, Other Endocrine/Hematological Disorders Cardiovascular History: Reports: Hx Coronary Artery Disease, Hx Hypercholesterolemia Denies: Hx Aneurysm, Hx Angina, Hx Angioplasty, Hx Auto Implanted Cardiovert Defib, Hx Cardiac Arrest, Hx Cardiomegaly, Hx Congenital Heart Disease, Hx Congestive Heart Failure, Hx Deep Vein Thrombosis, Hx Embolism, Hx Hypotension, Hx Hypertension, Hx Pacemaker/ICD, Hx Peripheral Vascular Disease, Hx Rheumatic Fever, Hx Syncope, Hx Valvular Heart Disease, Other Cardiovascular Problems/ Disorders Respiratory History: Denies: Hx Asthma, Hx Chronic Bronchitis, Hx Chronic Obstructive Pulmonary Disease (COPD), Hx Cystic Fibrosis, Hx Lung Cancer, Hx Pleural Effusion, Hx Pneumonia, Hx Pulmonary Edema, Hx Pulmonary Embolism, Hx Seasonal Allergies, Hx Sleep Apnea, Other Respiratory Problems/Disorders GI History: Reports: Hx Gastroesophageal Reflux Disease, Hx Hiatal Hernia, Hx Ulcer Denies: Hx Cirrhosis, Hx Crohn's Disease, Hx Diverticulosis, Hx Gall Bladder Disease, Hx Gastrointestinal Bleed, Hx Irritable Bowel, Hx Jaundice, Hx Obstructive Bowel, Hx Ileostomy, Hx Pyloric Stenosis, Other GI Disorders History: Denies: Hx Acute Renal Failure, Hx Benign Prostatic Hyperplasia, Hx Chronic Renal Failure, Hx Dialysis, Hx Kidney Infection, Hx Kidney Stones, Other Problems/Disorders Musculoskeletal History: Reports: Hx Arthritis Denies: Hx Back Problems, Hx Bursitis, Hx Congenital Bone Abnormalities, Hx Fibromyalgia, Hx Gout, Hx Orthopedic Injury, Hx Osteoporosis, Hx Scoliosis, Hx Tendonitis, Other Musculoskeletal History Sensory History: Reports: Hx Contacts or Glasses Denies: Hx Cataracts, Hx Eye Injury, Hx Eye Prosthesis, Hx Glaucoma, Hx Legally Blind, Hx Macular Degeneration, Hx Vision Problem, Hx Deafness, Hx Hearing Aid, Hx Hearing Problem, Other Sensory Impairments Opthamlomology History: Reports: Hx Contacts or Glasses Denies: Hx Cataracts, Hx Eye Injury, Hx Eye Prosthesis, Hx Glaucoma, Hx Legally Blind, Hx Macular Degeneration, Hx Vision Problem, Other Sensory Impairments Neurological History: Denies: Hx Dementia, Hx Developmental Delay, Hx Headaches, Hx Migraine, Hx Nerve Disease, Hx Seizures, Hx Spinal Cord Injury, Hx Transient Ischemic Attacks (TIA), Other Neuro Impairments/Disorders Psychiatric History: Reports: Hx Depression - medicated for depression Denies: Hx Anxiety, Hx Attention Deficit Hyperactivity Disorder, Hx Eating Disorder, Hx Panic Disorder, Hx Post Traumatic Stress Disorder, Hx Inpatient Treatment, Hx Community Mental Health Tx, Hx Schizophrenia, Hx Bipolar Disorder , Hx Suicide Attempt, Hx of Violent Episodes Against Others, Hx Substance Abuse , Other Psychiatric Issues/Disorders - Cancer History Cancer Type, 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 Hx Chemotherapy: No Hx Radiation Therapy: Yes - in the Hx Palliative Cancer Treatment: No - Surgical History Surgery Procedure, Year, and Place: total right knee 1995, 7 hand surgeries r/t RA, appendectomy, hernia 2011 Hx Anesthesia Reactions: No Infectious Disease History: No Infectious Disease History: Denies: Hx Clostridium Difficile, Hx Hepatitis, Hx Human Immunodeficiency Virus (HIV), Hx of Known/Suspected MRSA, Hx Shingles, Hx Tuberculosis, Hx Known/ Suspected VRE, Hx Known/Suspected VRSA, History Other Infectious Disease, Traveled Outside the [place] in Last 30 Days - Family History Known Family History: Negative: Renal Disease, Blood Disorder - Social History Alcohol Use: None Substance Use Type: Reports: None Smoking Status (MU): Never Smoked Tobacco Have You Smoked in the Last Year: No Review of Systems Constitutional: Negative Eyes: Negative ENT: Negative Cardiovascular: Negative Respiratory: Negative Gastrointestinal: Negative Genitourinary: Negative Musculoskeletal: Other - Right arm pain s/p surgery Skin: Other - Minor bleeding at area of surgical wound Neurological: Negative Psychological: Normal All Other Systems Reviewed And Are Negative: Yes Physical Exam - Summary Physical Exam Summary: Appearance: Well appearing, no pain distress Skin: Surgical wound is intact, Minor bleeding from the wound, warm and dry Head/face: normal Eyes: EOMI, RORY ENT: mucous membranes moist Neck: supple, non-tender Respiratory: CTA, breath sounds present Cardiovascular: RRR, pulses symmetrical Abdomen: non-tender, soft Bowel Sounds: present Musculoskeletal: Minor bruising on the right thumb, swelling of the right thumb Neuro: normal, sensory motor intact, A&Ox3 Triage Information Reviewed: Yes Vital Signs On Initial Exam: Initial Vitals Temp Pulse Resp BP Pulse Ox 98.1 F 64 16 151/72 95 07/03/18 01:36 07/03/18 01:36 07/03/18 01:36 07/03/18 01:36 07/03/18 01:36 Vital Signs Reviewed: Yes Procedures - Splinting Right Upper Extremity Location: right forearm, wrist Hand-Made Type: plaster Splint: sugar-tong Pre-Proc Neuro Vasc Exam: normal Post-Proc Neuro Vasc Exam: normal Diagnostics - Vital Signs Vital Signs Temp Pulse Resp BP Pulse Ox 07/03/18 01:36 98.1 F 64 16 151/72 95 - Laboratory Lab Statement: Any lab studies that have been ordered have been reviewed, and results considered in the medical decision making process. Re-Evaluation - Re-Evaluation First Eval Change: Improved - The patient's splint was taken down to the skin. He had near immediate pain relief with this. A splint was reapplied. Course/Dx - Course Course Of Treatment: Patient is immediately postop right upper extremity with pain in that same extremity. He is in a splint that was tightly applied. This was taken down and the color to the extremity improved and his pain diminished greatly. I reapplied the splint though less tight. He discharged in good condition. - Clinical Impression Provider Diagnoses: Post surgical complication, Arthritis, rheumatoid Discharge - Sign-Out/Discharge Documenting (check all that apply): Patient Departure - Discharge Home - Discharge Plan Condition: Stable Disposition: HOME Referrals: Rain Pinon MD [Primary Care Provider] - - Billing Disposition and Condition Condition: STABLE Disposition: Home - Attestation Statements Document Initiated by Scribe: Yes Documenting Scribe: Justen Hodge Provider For Whom Scribe is Documenting (Include Credential): Dr. Allen Scribe Attestation: Justen Parra, scribed for Dr. Allen on 07/03/18 at 0546. Scribe Documentation Reviewed: Yes Provider Attestation: The documentation as recorded by the Justen iverson accurately reflects the service I personally performed and the decisions made by Dr. Alejandro fountain
== END | disposition home or self-care (01) ==
LOC: ED 01:32
DX: G89.18 Other acute postprocedural pain (principal); M79.641 Pain in right hand; M06.9 Rheumatoid arthritis, unspecified; F32.9 Major depressive disorder, single episode, unspecified; Z79.899 Other long term (current) drug therapy; Z88.0 Allergy status to penicillin
CPT/HCPCS: 99282; J3010